=== PATIENT | female | born 1955 | race Caucasian/White ===

== ENCOUNTER 2019-10-02 07:39 | Outpatient (RCR) | payer MEDICARE, SELFPAY ==
--- NOTE | 2019-07-10 17:54 | WPDWOUNDNOTE ---
Wound Care Note Date/Time: 07/10/19 17:54 History: Patient is status post incarcerated ventral hernia repair with bilateral component separation and retro rectus mesh placement. She was originally healing well postoperatively, but 2-3 weeks postop she developed a large subcutaneous abscess and necrotizing soft tissue infection. She required multiple debridements and eventual wound VAC placement. She has been continuing care with wound VAC changes 3 times weekly at [facility]. She comes to the wound Care Center for Wound assessments and further recommendations. Wound history: 3 times weekly wound VAC changes since patient was discharged from hospital. Wound approximation: No Wound width: 27 Wound length: 10 Wound depth: 1 Drainage: Serosanguineous Surrounding tissue appearance: Macerated skin where black foam was sitting directly on. Tunnelin-8 o'clock 2-3 cm Percentage granulation tissue: 100% Treatment/Procedures: Sharp debridement of minimal necrotic tissue performed by wound ostomy care nurse Dressings: Saline wet to dry dressing applied until patient can return to [facility] and have wound VAC reapplied. Assessment and Plan Assessment and plan (1) Open wound of abdominal wall w/o penetration into peritoneal cavity: Code(s): S31.109A - Unspecified open wound of abdominal wall, unspecified quadrant without penetration into peritoneal cavity, initial encounter Status: Acute Assessment and Plan: Continue wound VAC changes at [facility]. Patient's nurse at [facility] was educated about avoiding sponge placement directly on patient's skin. I understand this is a difficult process due to patient's body habitus and position of wound directly within a skin crease. Will reassess patient in 1 week, and if skin maceration is persisting, may switch over to daily dressing changes instead of wound VAC. (2) Necrotizing soft tissue infection: Code(s): M79.89 - Other specified soft tissue disorders Status: Acute
--- NOTE | 2019-08-24 10:09 | PCWOUND ---
wocn note [facility] did not have patient down for appointment, cancelled for today. let Dr Office know, waiting for reschedule date and time.
--- NOTE | 2019-09-04 17:19 | WPDWOUNDNOTE ---
Wound Care Note Date/Time: 09/04/19 17:19 History: Patient continues to slowly improve. No complaints today. Still resides at [place] and is having daily dressing changes with silver gel and Mepilex border Wound approximation: No Wound width: 0.7 Wound length: 3 Percentage granulation tissue: 100 Assessment and Plan Assessment and plan (1) Open wound of abdominal wall w/o penetration into peritoneal cavity: Code(s): S31.109A - Unspecified open wound of abdominal wall, unspecified quadrant without penetration into peritoneal cavity, initial encounter Status: Acute Assessment and Plan: Continue Silver gel and Mepilex border dressing changes. Will follow up with patient in 1 month. (2) Necrotizing soft tissue infection: Code(s): M79.89 - Other specified soft tissue disorders Status: Acute
--- NOTE | 2019-10-02 16:59 | WPDWOUNDNOTE ---
Wound Care Note Date/Time: 10/02/19 16:59 History: Patient is status post incarcerated ventral hernia repair with bilateral component separation and retro rectus mesh placement. She was originally healing well postoperatively, but 2-3 weeks postop she developed a large subcutaneous abscess and necrotizing soft tissue infection. She required multiple debridements and eventual wound VAC placement. She is currently residing at [facility]. She comes to the wound Care Center for Wound assessments and further recommendations. Wound history: Wound has nearly closed completely. One small wound opening remains. Wound approximation: No Wound width: 0.7cm Wound length: 3.5cm Wound depth: 0.2cm Drainage: serous Surrounding tissue appearance: healthy Tunneling: no Percentage granulation tissue: 100 Assessment and Plan Assessment and plan (1) Open wound of abdominal wall w/o penetration into peritoneal cavity: Qualifiers: Encounter type: subsequent encounter Qualified Code(s): S31.109D - Unspecified open wound of abdominal wall, unspecified quadrant without penetration into peritoneal cavity, subsequent encounter Code(s): S31.109A - Unspecified open wound of abdominal wall, unspecified quadrant without penetration into peritoneal cavity, initial encounter Status: Acute Assessment and Plan: Patient continues to slowly heal, and she has no signs of further abdominal infection. Will continue Mepilex border dressing changes daily. This routine daily wound care can be handled safely at the group home facility. She may follow up in the wound clinic or in my office as needed for any other concerns. (2) Necrotizing soft tissue infection: Code(s): M79.89 - Other specified soft tissue disorders Status: Acute
== END 2019-10-08 23:59 | disposition home or self-care (01) ==
LOC: ANHWOC 07:39
PROVIDERS: PCP Family Medicine Adolescent Medicine; Visit Provider Surgery
DX: Z48.01 Encounter for change or removal of surgical wound dressing (principal)
CPT/HCPCS: 92593; 99212; 99213; A9270; G0463

== ENCOUNTER 2020-09-25 11:43 | Inpatient (IN) | payer MEDICARE, MEDICAID, SELFPAY ==
[2020-09-25] VITALS (42 sets, daily range): BP systolic 146–182; BP diastolic 84–111; PULSE 76–96; RESP 16–26; TEMP 36.2–36.3; O2SAT 90–97
--- NOTE | ~2020-09-25 | XR_ITS ---
EXAMINATION: XR chest 1V portable EXAM DATE: 09/25/2020 13:23 INDICATION: Altered mental status, shortness of breath and weakness. TECHNIQUE: Portable AP frontal chest x-ray was obtained. Comparison is made to prior examination from 05/20/2019. FINDINGS: Low lung volume. No confluent consolidation, pneumothorax or pleural effusion suspected. Th e cardiac silhouette is enlarged. There are bony degenerative changes. IMPRESSION: 1. No acute cardiopulmonary findings. Reviewed, dictated and finalized at location A. GER OF CORPORATE COMMUNICATIONS
--- NOTE | ~2020-09-25 | XR_ITS ---
XR abdomen NG/feed tube insert DATE: 10/01/2020 05:41 INDICATION: NG tube placement TECHNIQUE: Portable AP view on October 01, 2020 at 0451 hours COMPARISON: October 01, 2020 KUB at 0339 hours FINDINGS: An NG tube overlies the esophagus and stomach, the distal tip overlying the lateral aspect of the right upper quadrant, likely either in the distal stomach or proximal small bowel. IMPRESSION: NG tube likely in distal stomach or proximal duodenum Reviewed, dictated and finalized at Location A. Reviewed, dictated and finalized at location A. NSE AND PERMIT SPECIALIST
--- NOTE | ~2020-09-25 | XR_ITS ---
XR chest 1V portable DATE: 10/01/2020 03:58 INDICATION: Oxygen desaturation TECHNIQUE: Portable AP chest on October 01, 2020 at 0337 hours COMPARISON: 09/25/2020 portable AP chest FINDINGS: Mild infiltrate or atelectasis at the lung bases. The right apex is not optimally evaluated due to superimposed chin. Borderline heart size. Aortic unfolding. Severe osteoarthritic change at the left glenohumeral joint. Diffuse osteopenia. Degenerative change of the thoracic spine. 4.5 cm rounded hyperdensity of uncertain significance, possibly a superimposed artifact, overlies the right upper abdomen. There is gaseous distention of the stomach. IMPRESSION: Mild infiltrate or atelectasis at the lung bases Reviewed, dictated and finalized at location A. NESE INTERPRETER
--- NOTE | ~2020-09-25 | CT_ITS ---
EXAMINATION: CT brain wo con DATE: 09/25/2020 22:58 INDICATION: Altered mental state. Left cheek swelling, possible trauma. TECHNIQUE: Computed tomography (CT) of the head was performed without intravenous contrast. The mA wa s adjusted according to patient size. Iterative reconstruction technique was employed. Exam dose: 68 1.00 mGy-cm total exam DLP. COMPARISON: 05/25/2019 CT brain FINDINGS: There is greater than expected central and cortical cerebral atrophy and cerebellar atrophy for chronological age. There is nonspecific diminished attenuation of the cerebral white matter, likely due to chronic small vessel ischemic changes. Bilateral carotid siphon and supraclinoid internal carotid artery calcifications, bilateral vertebral artery calcification. No intracranial mass lesion or hemorrhage or recent cerebrovascular accident is evident. No midline s hift or mass effect. Bilateral orbital globe prostheses. Prominent soft tissue thickening of the right maxillary sinus. Patchy opacification of some right eth moid air cells. The mastoid air cells are normally developed and aerated. Bilateral hyperostosis frontalis interna, not likely of clinical significance. No fracture or bone de struction of the cranial vault. IMPRESSION: Cerebral and cerebellar atrophy for age Single atherosclerosis and chronic small vessel ischemic changes of cerebral white matter No acute cranial finding or skull fracture Reviewed, dictated and finalized at Location A. Reviewed, dictated and finalized at location A. IC ASSISTANT IMPRESSION: Cerebral and cerebellar atrophy for age Single atherosclerosis and chronic small vessel ischemic changes of cerebral wh ite matter No acute cranial finding or skull fracture
--- NOTE | ~2020-09-25 | CT_ITS ---
EXAMINATION: CT facial & cervical spine wo DATE: 09/25/2020 22:58 INDICATION: Altered mental status. Left cheek swelling. TECHNIQUE: Computed tomography (CT) of the facial bones and maxillofacial region and cervical spine w as performed without intravenous contrast. Automated exposure control and iterative reconstruction te chnique were employed. Exam dose: 509.37 mGy-cm total exam DLP. COMPARISON: None. FINDINGS: No facial fracture or bone destruction is evident. The nasal bone, zygomatic arches, fronto zygomatic sutures are intact. There is severe mucoperiosteal thickening of the right maxillary sinus and patchy opacification of so me right ethmoid air cells. The mastoid air cells are normally developed and aerated. C1 and C2 are normally aligned and the odontoid process is intact. No fracture or dislocation or locked facet or prevertebral soft tissue swelling is evident. Moderate degenerative disc disease at C3-4, C4-5. There is severe degenerative disc disease at C5-6 and C6-7. There is degenerative change at the apophyseal and uncovertebral joints. IMPRESSION: No facial or cervical spine fracture Extensive degenerative changes of the cervical spine Right maxillary sinus and right ethmoid sinus partial opacification Reviewed, dictated and finalized at Location A. Reviewed, dictated and finalized at location A. OMS COMPLIANCE SPECIALIST
--- NOTE | ~2020-09-25 | XR_ITS ---
EXAMINATION: XR abdomen obstructive series DATE: 09/27/2020 10:17 INDICATION: Vomiting. TECHNIQUE: Upright and supine views of the abdomen on 3 radiographs were obtained. COMPARISON: Abdomen single view 05/08/2019, CT abdomen and pelvis 05/19/2019 FINDINGS: There is gaseous distention of the stomach. There are no dilated loops of large or small linsey wel. There is a moderate volume of stool in the colon. No free intraperitoneal gas. IMPRESSION: 1. Gaseous distention of the stomach. Reviewed, dictated and finalized at location A. E D TECH
--- NOTE | ~2020-09-25 | XR_ITS ---
EXAMINATION: XR abdomen/kub 1V DATE: 09/29/2020 06:16 INDICATION: Bowel obstruction TECHNIQUE: A supine view of the abdomen on 2 radiographs was obtained. COMPARISON: CT dated 09/28/2020 FINDINGS: There are few dilated gas-filled loops of bowel in the central abdomen consistent with persistent sma ll bowel obstruction. Moderate amount of stool in the proximal colon was small to moderate amount of gas in the more distal colon. 6 nonrib-bearing lumbar segments. L2 compression fracture. IMPRESSION: 1. Persistent small bowel obstruction. Reviewed, dictated and finalized at location A. TER TOPOGRAPHICAL
--- NOTE | ~2020-09-25 | XR_ITS ---
XR abdomen/kub 1V DATE: 10/01/2020 03:58 INDICATION: Small bowel obstruction TECHNIQUE: 3 views of the abdomen on October 01, 2020 at 0 339 through 0341 hours COMPARISON: September 30, 2020 small bowel follow-through FINDINGS: There is still a prominent amount of radiopaque contrast material within the distended stom ach and dilated loops of small bowel, without reaching the colon, consistent with persistent small linsey wel obstruction. IMPRESSION: Small bowel obstruction Reviewed, dictated and finalized at Location A. Reviewed, dictated and finalized at location A. CH PATHOLOGIST ASSISTANT IMPRESSION: Small bowel obstruction
--- NOTE | ~2020-09-25 | XR_ITS ---
EXAMINATION: XR sm bowel follow through DATE: 09/30/2020 13:40 INDICATION: Small bowel obstruction. TECHNIQUE: Oral contrast was administered, and a time course of radiographs of the abdomen was obtain ed. Fluoroscopy of the small bowel was not performed. Fluoroscopy exposure time was 0 minutes. The to rayne number of images was 11. COMPARISON: CT abdomen and pelvis 09/28/2020 FINDINGS: There are multiple dilated loops of small bowel. The stomach is distended. At 4 hours, contrast remai zak in proximal small bowel. The colon is decompressed. IMPRESSION: 1. Small bowel obstruction. Reviewed, dictated and finalized at location A. INTERN IMPRESSION: 1. Small bowel obstruction.
--- NOTE | ~2020-09-25 | XR_ITS ---
EXAMINATION: XR abdomen NG/feed tube insert DATE: 09/27/2020 12:23 INDICATION: Ileus. Nasogastric tube placement. TECHNIQUE: A supine view of the abdomen and lower chest was obtained for evaluation of feeding tube placement. COMPARISON: 09/27/2020 FINDINGS: Is a gastric tube with proximal side-port in the body of the stomach and distal tip collimated below the inferior margin of the [id number]. Decrease in the degree of gastric distention. Large amount of stool at the hepatic and splenic flexures of the colon. No dilated loops of bowel in the visualize d abdomen. Linear discoid atelectasis/scarring in the lateral left lower lung zone. Cardiomegaly. IMPRESSION: 1. Nasogastric tube in the stomach. Reviewed, dictated and finalized at location B. WORKER
--- NOTE | ~2020-09-25 | CT_ITS ---
EXAMINATION: CT abdomen pelvis wo con DATE: 09/28/2020 09:53 INDICATION: Nausea TECHNIQUE: Computed tomography (CT) of the abdomen and pelvis was performed without intravenous contr ast. Automated exposure control and iterative reconstruction technique were employed. Exam dose: 109 6.03 mGy-cm total exam DLP. COMPARISON: 05/19/2019 CT abdomen pelvis 05/01/2019 CTA chest abdomen pelvis FINDINGS: Prominent discoid atelectasis or scarring is again noted in the right lower lobe intra-leana cular extent left lower lobe and lingula. Cardiomegaly. Coronary artery calcification. Mitral annulus calcification. No pericardial or pleural effusion. The liver, gallbladder, spleen, pancreas, adrenal glands are unremarkable. No bile duct or pancreatic duct dilatation. Upper pole right renal mass lesion is demonstrated to better advantage on the IV contrast examination of 05/01/2019. No urinary tract calculus or hydroureteronephrosis. The urinary bladder appears unremarkable. Status post hysterectomy. Normal caliber of the abdominal aorta. No intraperitoneal or retroperitoneal or pelvic mass lesion or adenopathy or ascites. There are fluid containing dilated small bowel segments measuring up to 3.8 cm diameter, with multipl e air-fluid levels. There is a transition zone in the mid pelvic area with decompression of the dista l small bowel. Normal appendix. There is a prominent amount of fecal material within the colon. No colonic obstructi on. No intraperitoneal free air. Bilateral fat-containing inguinal hernias. Subacute or old healed anterior right fifth, sixth and seventh rib fractures. Burst fracture deformity of L1, present on 05/01/201919. Grade 1 anterolisthesis at L4-5 due to degenerative change at the apophyseal joints. Degenerative changes of the thoracic and lumbar spine IMPRESSION: Small bowel obstruction with transition zone in the mid pelvic area Upper pole right renal mass lesion is demonstrated to better advantage on prior 05/01/2019 CT examinati on with IV contrast material. Reviewed, dictated and finalized at [facility] Reviewed, dictated and finalized at [facility] [employer] IMPRESSION: Small bowel obstruction with transition zone in the mid pelvic are a Upper pole right renal mass lesion is demonstrated to better advantage on prior 05/01/2019 CT examination with IV contrast material.
[2020-09-25 12:05] LABS: Glucose Point of Care 165 (65-105)
--- NOTE | 2020-09-25 13:00 | ED.AMS ---
HPI - Altered Mental Status General Chief Complaint: Altered Mental Status Stated Complaint: htn Time Seen by Provider: 09/25/20 12:13 History of Present Illness HPI narrative: Patient is a 65-year-old female who presents ER with a change in mental status. Apparently the half-way patient is more somnolent not eating. No history of trauma. No history of fevers or sweats per EMS. Unfortunately history is very limited due to patient's mental status. Related Data Home Medications Medication Instructions Recorded Confirmed Miralax 17 g PO DAILY 09/25/20 09/25/20 Protonix 40 mg PO DAILY 09/25/20 09/25/20 acetaminophen 650 mg PO Q4H PRN 09/25/20 09/25/20 duloxetine 60 mg PO DAILY 09/25/20 09/25/20 glucagon (human recombinant) 1 mg IM PRN PRN 09/25/20 09/25/20 [GlucaGen HypoKit] indapamide 2.5 mg PO BID 09/25/20 09/25/20 lorazepam 1 mg PO DAILY PRN 09/25/20 09/25/20 losartan 100 mg PO DAILY 09/25/20 09/25/20 meclizine 25 mg PO QID PRN 09/25/20 09/25/20 metformin 1,000 mg PO DAILY 09/25/20 09/25/20 metformin 500 mg PO HS 09/25/20 09/25/20 nystatin [Nystop] 100,000 unit TOPICAL PRN PRN 09/25/20 09/25/20 potassium chloride 10 meq PO DAILY 09/25/20 09/25/20 propranolol 80 mg PO BID 09/25/20 09/25/20 quetiapine 50 mg PO HS 09/25/20 09/25/20 Allergies Allergy/AdvReac Type Severity Reaction Status Date / Time codeine Allergy Unknown Verified 09/25/20 13:14 Iodinated Contrast Media Allergy Unknown Verified 09/25/20 13:15 procaine Allergy Unknown Verified 09/25/20 13:15 shellfish derived Allergy Unknown Verified 09/25/20 13:15 adhesive tape AdvReac Unknown Verified 09/25/20 13:15 Review of Systems Review of Systems: ROS unobtainable: Yes unobtainable due to mental status PMFSH Past Medical History Medical History (Updated 09/25/20 @ 23:38 by John Kruse MD) Anxiety Benign colon polyp Chronic anemia Dysphagia Essential hypertension Gastroesophageal reflux disease Irritable bowel syndrome Major depressive disorder Migraine 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 Type 2 diabetes mellitus Uterine cancer (~1998) Status post total hysterectomy. Surgical History Surgical History (Updated 09/25/20 @ 23:14 by Jes Truong PA-C) History of bilateral carpal tunnel release History of bilateral enucleation of eyeball As a child, for treatment of retinoblastoma. History of hysterectomy (~1998) As treatment for uterine cancer. History of ventral hernia repair (~03/2019) Incarcerated ventral hernia repair complicated by abdominal wall abscess and necrotizing soft tissue infection requiring multiple debridements and wound VAC. Family History Family History (Updated 09/25/20 @ 23:16 by Jes Truong PA-C) Mother Diabetes mellitus Father Acute myocardial infarction Sibling Acute myocardial infarction Social History Social History (Updated 09/25/20 @ 23:17 by Jes Truong PA-C) Social History: She is a resident at [facility]. Lifelong nonsmoker. No alcohol or illicit substance use. Her brother, Vinay morales, is her healthcare power of divorce attorney. She is listed as a do not resuscitate. Spiritual care concerns: No Exam Narrative: Exam Narrative: GENERAL: Chronically ill-appearing, obese, and in no acute distress. HEAD: Normocephalic, atraumatic. CHEST: Clear to auscultation. No respiratory distress. HEART: Regular rate and rhythm. Normal peripheral pulses. ABDOMEN: Soft, nontender, nondistended. EXTREMITIES: Normal range of motion. 1+ edema. SKIN: Warm, dry, no rash. NEURO: Alert and oriented x1. PSYCH: Normal mood and affect. Course Course Emergency Course: Admit to hospitalist service. Patient with urinary tract infection and dehydration. Patient given ceftriaxone and IV fluid. Vital Signs Vital signs: Vital Signs Temperature 97.4 F L 09/25
[2020-09-25 13:12] LABS: Base Excess ABG 4.2 mEq/l (+/-2.0); Fractional Inspired Oxygen 21 %; HCO3 ABG 28.4 mEq/l (22.0-26.0); Oxygen Content ABG 21.5 %vol (16.0-22.0); Oxygen Saturation ABG 92.7 % (95.0-100.0); Oxyhemoglobin 90.9 % THb (90.0-100.0); PCO2 ABG 41.2 mmHg (35.0-45.0); PO2 ABG 61.4 mmHg (80.0-100.0); PO2 FiO2 Ratio Arterial Blood 2.92 %; Total Hemoglobin 16.9 g/dL (12.0-18.0); pH ABG 7.457 (7.350-7.450)
[2020-09-25 13:13] LABS: Device ROOM AIR; Modified Allen's Test Pass; Site Drawn LEFT RADIAL
[2020-09-25 13:28] LABS: Basophils Percent Auto 0.3 % (0.2-1.2); Eosinophils Percent Auto 0.1 % (0-4.4); Hematocrit 47.3 % (37.0-47.0); Hemoglobin 16.4 g/dL (12.0-15.0); Immature Granulocyte Absolute 0.06 K/mm3 (0.00-0.031); Immature Granulocyte Percent A 0.4 % (0-0.5); Lymphocytes Absolute Auto 1.54 K/mm3 (0.9-3.2); Lymphocytes Percent Auto 10.8 % (18.3-44.2); Mean Corpuscular HGB Conc 34.7 g/dl (32-36); Mean Corpuscular Hemoglobin 29.3 pg (26-34); Mean Corpuscular Volume 84.6 fl (80-100); Mean Platelet Volume 8.5 fl (7.4-10.4); Monocytes Absolute Auto 1.1 K/mm3 (0.1-0.6); Monocytes Percent Auto 7.4 % (2.6-8.5); Neutrophils Absolute Auto 11.5 K/mm3 (1.3-6.7); Platelet Count Result 273 k/mm3 (150-375); Red Blood Count 5.59 M/mm3 (4.2-5.4); Red Cell Distribution Width 14.1 % (11.5-14.5); White Blood Count 14.2 K/mm3 (4.5-10.0)
--- NOTE | 2020-09-25 13:38 | PC.NURSE ---
Patient's O2 saturation 88% on RA. Patient requiring repeated stimulation to wake up and speak. Patient placed on 2L NC, O2 saturation now 96%.
[2020-09-25 13:45] LABS: Anion Gap 9 mmol/L (8-16); Blood Urea Nitrogen 31 mg/dL (7-17); Calcium 9.4 mg/dL (8.4-10.2); Carbon Dioxide 31 mmol/L (22-30); Chloride 95 mmol/L (98-107); Estimated CRCL calculation 45 ml/min; Estimated Glomerular Filt Rate 56; Glucose 162 mg/dL (65-105); Potassium 3.3 mmol/L (3.4-5.0); Sodium 135 mmol/L (137-145)
[2020-09-25] MEDS: SODIUM CHLORIDE 0.9% IV 1,000 ML 999 ML IV CONT (14:23)
[2020-09-25 14:49] LABS: Add Urine Microscopic? YES; Appearance Urine Cloudy (Clear); Bacteria Urine 4+ /hpf; Bilirubin Urine 1+ (Negative); Blood Urine 1+ (Negative); Color Urine Amber (Yellow); Glucose Urine UA Negative (Negative); Ketones Urine Trace mg/dL (Negative); Leukocyte Esterase Ur 2+ LEU/UL (Negative); Mucus Urine Heavy /lpf; Nitrate Urine Negative (Negative); Protein Urine 2+ mg/dL (Negative); Squamous Epithelial Cell Urine Rare /hpf (Few); WBC Clumps Urine Present /HPF; WBC Urine 51-75 /hpf
[2020-09-25] MEDS: SODIUM CHLORIDE 0.9% IV 1,000 ML 125 ML IV CONT (16:50)
--- NOTE | 2020-09-25 17:06 | PC.NURSE ---
Report given to RN taking over patient's care.
--- NOTE | 2020-09-25 18:32 | PC.NURSE ---
This patient, Elidia Patel, was admitted to Medical Room 244-. Patient/family oriented to hospital policies and general routines including ID bracelet, bed and alarms, visiting hours, pain management, procedures, bathroom and other care routines, personal items, smoking policy, room service/diet, and visiting hours. Information on how to activate the Rapid Response Team has been discussed. Patient/Family are encouraged to report perceived risks to care and to ask questions if they do not understand what they are told or what they should do.
--- NOTE | 2020-09-25 20:00 | PM.IMHP ---
H&P: HPI History of Present Illness Date/Time: 09/25/20 20:00 Chief Complaint: Altered mental status. Narrative: This is a 65-year-old female with type 2 diabetes mellitus, hypertension, GERD, chronic anemia, and history of bilateral retinoblastoma status post enucleation who presented to the emergency department earlier this afternoon via EMS from [facility] for evaluation of altered mental status. She cannot provide me with any significant history given her current clinical condition, as she only said a couple of words the entire time I was in the room. According to the triage note, staff at the correction were unable to get her to eat breakfast today and she was lethargic and not really responding. On arrival to the emergency department she was found to meet sepsis criteria with evidence of urinary tract infection as well as dehydration and she was admitted in this setting. At the time my evaluation she acts much different than when I have seen her in the past, not really responding to questions although she does follow some commands. She seems restless and moves around in bed, and frequently throws off her covers. She has swelling with evidence of an abrasion on her left cheek but she cannot tell me if that is new or if it was from a trauma. There was no mention fall or injury in the paperwork that accompanied her. Also no mention of fever. She does indicate by nodding her head that she has been nauseated and in fact she vomited not long prior to me entering the room. When asked if she was in pain she stated yes however did not elaborate, and this was the extent of her communication. Review of Systems Review of Systems: Narrative: Unable to be assessed given her current clinical condition as detailed above. 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 Type 2 diabetes mellitus Uterine cancer (~1998) Status post total hysterectomy. Surgical History Surgical History (Updated 09/25/20 @ 23:14 by Jes Truong PA-C) History of bilateral carpal tunnel release History of bilateral enucleation of eyeball As a child, for treatment of retinoblastoma. History of hysterectomy (~1998) As treatment for uterine cancer. History of ventral hernia repair (~03/2019) Incarcerated ventral hernia repair complicated by abdominal wall abscess and necrotizing soft tissue infection requiring multiple debridements and wound VAC. Family History Family History (Updated 09/25/20 @ 23:16 by Jes Truong PA-C) Mother Diabetes mellitus Father Acute myocardial infarction Sibling Acute myocardial infarction Social History Social History (Updated 09/25/20 @ 23:17 by Jes Truong PA-C) Social History: She is a resident at [facility]. Lifelong nonsmoker. No alcohol or illicit substance use. Her brother, Vinay morales, is her healthcare power of composite engineer. She is listed as a do not resuscitate. Spiritual care concerns: No Meds Home Medications and Allergies Home Medications Medication Instructions Recorded Confirmed Type Miralax 17 g PO DAILY 09/25/20 09/25/20 History Protonix 40 mg PO DAILY 09/25/20 09/25/20 History acetaminophen 650 mg PO Q4H PRN 09/25/20 09/25/20 History duloxetine 60 mg PO DAILY 09/25/20 09/25/20 History glucagon (human recombinant) 1 mg IM PRN PRN 09/25/20 09/25/20 History [GlucaGen HypoKit] indapamide 2.5 mg PO BID 09/25/20 09/25/20 History lorazepam 1 mg PO DAILY PRN 09/25/20 09/25/20 History losartan 100 mg PO DAILY 09/25/20 09/25/20 History meclizine 25 mg PO QID PRN 09/25/20 09/25/20 History metformin
[2020-09-25] MEDS: ONDANSETRON INJ 4 MG/2 ML VIAL IV PUSH (21:40)
[2020-09-25 21:48] LABS: Lactic Acid Reflex 1.5 mmol/L (0.7-2.1)
[2020-09-25 21:49] LABS: Alanine Aminotransferase 13 U/L (4-35); Albumin Level 3.7 g/dL (3.5-5.1); Alkaline Phosphatase 110 U/L (38-126); Anion Gap 8 mmol/L (8-16); Aspartate Amino Transferase 24 U/L (14-36); Bilirubin,Total 0.7 mg/dL (0.2-1.3); Blood Urea Nitrogen 34 mg/dL (7-17); Carbon Dioxide 30 mmol/L (22-30); Chloride 98 mmol/L (98-107); Estimated CRCL calculation 45 ml/min; Estimated Glomerular Filt Rate 56; Glucose 168 mg/dL (65-105); Magnesium 1.5 mg/dL (1.6-2.3); Potassium 3.3 mmol/L (3.4-5.0); Sodium 136 mmol/L (137-145)
[2020-09-25 22:01] LABS: Glucose Point of Care 183 (65-105)
[2020-09-25] MEDS: MAGNESIUM SULF 2 GM/WATER 50ML 2 GM/50 ML BAG IVPB (22:36)
[2020-09-26] VITALS (8 sets, daily range): BP systolic 144–202; BP diastolic 78–98; PULSE 68–82; RESP 16–19; TEMP 36–36.6; O2SAT 94–96
[2020-09-26] MEDS: METOPROLOL TARTRATE INJ 5 MG/5 ML VIAL IV PUSH ×2 (00:26→05:57)
[2020-09-26] MEDS: KCL 20 MEQ/SW 100 ML 100 ML 50 MEQ IVPB (00:27)
[2020-09-26] MEDS: SODIUM CHLORIDE 0.9% IV 1,000 ML 125 ML IV CONT (03:15)
[2020-09-26 05:47] LABS: Hematocrit 40.2 % (37.0-47.0); Hemoglobin 13.7 g/dL (12.0-15.0); Mean Corpuscular HGB Conc 34.1 g/dl (32-36); Mean Platelet Volume 8.9 fl (7.4-10.4); Platelet Count Result 223 k/mm3 (150-375); Red Blood Count 4.73 M/mm3 (4.2-5.4); Red Cell Distribution Width 14.1 % (11.5-14.5); White Blood Count 16.2 K/mm3 (4.5-10.0)
[2020-09-26 05:48] LABS: Alanine Aminotransferase 12 U/L (4-35); Albumin Level 3.5 g/dL (3.5-5.1); Alkaline Phosphatase 102 U/L (38-126); Anion Gap 6 mmol/L (8-16); Aspartate Amino Transferase 24 U/L (14-36); Bilirubin,Total 0.8 mg/dL (0.2-1.3); Blood Urea Nitrogen 35 mg/dL (7-17); Calcium 8.6 mg/dL (8.4-10.2); Carbon Dioxide 34 mmol/L (22-30); Chloride 98 mmol/L (98-107); Estimated CRCL calculation 45 ml/min; Estimated Glomerular Filt Rate 56; Glucose 154 mg/dL (65-105); Magnesium 2.1 mg/dL (1.6-2.3); Potassium 3.2 mmol/L (3.4-5.0); Sodium 138 mmol/L (137-145)
[2020-09-26 07:37] LABS: Glucose Point of Care 170 (65-105)
[2020-09-26] MEDS: POTASSIUM CHLORIDE 20 MEQ PACKET (FOR LIQUID) PO (08:41)
[2020-09-26] MEDS: INDAPAMIDE 2.5 MG TABLET PO ×2 (08:41→17:08)
[2020-09-26] MEDS: ENOXAPARIN 40 MG/0.4 ML SYRINGE SUB-Q (08:42)
[2020-09-26] MEDS: DULoxetine HCL 60 MG CAPSULE.DR PO (08:42)
[2020-09-26] MEDS: PANTOPRAZOLE 40 MG TABLET PO (08:43)
[2020-09-26] MEDS: PROPRANOLOL HCL 40 MG TABLET 80 MG PO ×2 (08:43→17:08)
[2020-09-26] MEDS: LOSARTAN POTASSIUM 100 MG TABLET PO (08:43)
--- NOTE | 2020-09-26 09:03 | PM.IMPN ---
Progress Note: A&P Assessment and Plan (1) Metabolic encephalopathy: Code(s): G93.41 - Metabolic encephalopathy Status: Acute Assessment and Plan: The patient presented to the emergency department with altered mental status, felt to be metabolic encephalopathy from underlying infection and dehydration. She appears maybe slightly improved since admission. Will continue with IV fluids and treatment for UTI as described below I have instructed RN to keep her NPO except with sips with meds until her mental status improves; then advance her diet as tolerated If no improvement, will consider ST eval (2) Urinary tract infection: Code(s): N39.0 - Urinary tract infection, site not specified Status: Acute Assessment and Plan: UA suspicious for UTI; UCx and BCx pending. Patient technically met SIRS criteria with leukocytosis and tachypnea; RR has improved, leukocytosis stable. Lactic acid WNL. Patient placed on IV Rocephin from the ED Continue IV Rocephin for now; tailor antibiotics to culture Continue IV fluids for rehydration Monitor leukocytosis and clinical status (3) Dehydration: Code(s): E86.0 - Dehydration Status: Acute Assessment and Plan: Still appears significantly dry on exam. Continue IV fluid hydration until tolerating PO (4) Type 2 diabetes mellitus: Code(s): E11.9 - Type 2 diabetes mellitus without complications Status: Inactive Assessment and Plan: A1c 5.0 Accuchecks ACHS, hypoglycemia protocol, correctional insulin, diabetic diet once tolerating diet (5) Hypokalemia: Code(s): E87.6 - Hypokalemia Status: Acute Assessment and Plan: K+ 3.2 today; replaced Monitor daily Replace as needed (6) Hypomagnesemia: Code(s): E83.42 - Hypomagnesemia Status: Acute Assessment and Plan: Mag 2.1 Monitor daily Replace as needed (7) Essential hypertension: Code(s): I10 - Essential (primary) hypertension Status: Inactive Assessment and Plan: BP elevated at 140s sys; but patient has not had most HTN meds yet Will resume home antihypertensive meds PRN hydralazine IV with parameters Monitor (8) Gastroesophageal reflux disease: Code(s): K21.9 - Gastro-esophageal reflux disease without esophagitis Status: Inactive Assessment and Plan: Continue home meds (9) Major depressive disorder: Code(s): F32.9 - Major depressive disorder, single episode, unspecified Status: Inactive Assessment and Plan: Continue home meds Subjective Date/time seen: 09/26/20 09:03 Interval history: Patient is a 65-year-old female with type 2 diabetes mellitus, hypertension, GERD, chronic anemia, and history of bilateral retinoblastoma status post enucleation who is seen in follow up for acute metabolic encephalopathy felt to be due to suspected UTI and meeting SIRS criteria with leukocytosis and tachypnea. Patient is awake, but lethargic. Nursing in room attempting to feed meds; she swallows some medications, but takes a lot of convincing to take more medications or answer questions. She tells me her name, but answers very little other history questions. She endorses chest pain, but cannot provide any descriptors and I am not quit sure if she is truly having any symptoms at the moment. No other history can be obtained at the time due to mental status. Review of Systems Review of Systems: ROS unobtainable: Yes unobtainable due to mental status Exam Narrative: Exam Narrative: General: Patient sitting upright in bed in no acute distress. Nursing
[2020-09-26 11:40] LABS: Glucose Point of Care 140 (65-105)
[2020-09-26 16:37] LABS: Glucose Point of Care 147 (65-105)
[2020-09-26] MEDS: SODIUM CHLORIDE 0.9% IV 1,000 ML 75 ML IV CONT (20:29)
[2020-09-26 20:32] LABS: Glucose Point of Care 131 (65-105)
[2020-09-26] MEDS: hydrALAZINE HCL 20 MG/ML VIAL 5 MG IV PUSH (20:37)
--- NOTE | 2020-09-26 20:40 | PC.NURSE ---
b/p / manual Hydralazine ivp given.
[2020-09-27 05:14] VITALS: BP 148/96; PULSE 67; RESP 16; TEMP 36.8; O2SAT 94
[2020-09-27 05:20] LABS: Basophils Percent Auto 0.4 % (0.2-1.2); Eosinophils Absolute Auto 0.1 K/mm3 (0-0.3); Eosinophils Percent Auto 1.4 % (0-4.4); Hematocrit 40.2 % (37.0-47.0); Hemoglobin 13.3 g/dL (12.0-15.0); Immature Granulocyte Absolute 0.04 K/mm3 (0.00-0.031); Immature Granulocyte Percent A 0.4 % (0-0.5); Lymphocytes Absolute Auto 1.35 K/mm3 (0.9-3.2); Lymphocytes Percent Auto 14.3 % (18.3-44.2); Mean Corpuscular HGB Conc 33.1 g/dl (32-36); Mean Corpuscular Hemoglobin 29.6 pg (26-34); Mean Corpuscular Volume 89.3 fl (80-100); Monocytes Absolute Auto 0.9 K/mm3 (0.1-0.6); Monocytes Percent Auto 9.9 % (2.6-8.5); Neutrophils Absolute Auto 6.9 K/mm3 (1.3-6.7); Neutrophils Percent Auto 73.6 % (45.5-73.1); Platelet Count Result 189 k/mm3 (150-375); Red Cell Distribution Width 14.1 % (11.5-14.5); White Blood Count 9.4 K/mm3 (4.5-10.0)
[2020-09-27 05:34] LABS: Anion Gap 7 mmol/L (8-16); Blood Urea Nitrogen 30 mg/dL (7-17); Calcium 8.7 mg/dL (8.4-10.2); Carbon Dioxide 30 mmol/L (22-30); Chloride 100 mmol/L (98-107); Estimated CRCL calculation 56 ml/min; Estimated Glomerular Filt Rate > 60; Glucose 128 mg/dL (65-105); Magnesium 1.7 mg/dL (1.6-2.3); Sodium 137 mmol/L (137-145)
--- NOTE | 2020-09-27 06:04 | PC.NURSE ---
Pt remains somewhat somulant [facility]
[2020-09-27 07:43] LABS: Glucose Point of Care 119 (65-105)
--- NOTE | 2020-09-27 09:51 | PM.IMPN ---
Progress Note: A&P Assessment and Plan (1) Metabolic encephalopathy: Code(s): G93.41 - Metabolic encephalopathy Status: Acute Assessment and Plan: The patient presented to the emergency department with altered mental status, felt to be metabolic encephalopathy from underlying infection and dehydration. She appears maybe slightly improved since admission, but nursing now reports she vomited again this morning; she is at risk for aspiration given this Will continue with IV fluids and treatment for UTI as described below I have instructed RN to keep her NPO except with sips with meds Will do ST bedside eval and treat; will await recommendations Will do abd series/KUB today for further eval of vomiting (2) Urinary tract infection: Code(s): N39.0 - Urinary tract infection, site not specified Status: Acute Assessment and Plan: UA suspicious for UTI; UCx growing E. coli sensitive to Rocephin and BCx NGTD x 2 after 2 days. Patient technically met SIRS criteria with leukocytosis and tachypnea; RR has improved, leukocytosis stable. Lactic acid WNL. Patient placed on IV Rocephin from the ED Continue IV Rocephin for now; switch to PO cefdinir once mental status improves Continue IV fluids for rehydration Monitor leukocytosis and clinical status (3) Dehydration: Code(s): E86.0 - Dehydration Status: Acute Assessment and Plan: Still appears significantly dry on exam. Continue IV fluid hydration until tolerating PO (4) Type 2 diabetes mellitus: Code(s): E11.9 - Type 2 diabetes mellitus without complications Status: Inactive Assessment and Plan: A1c 5.0 Accuchecks ACHS, hypoglycemia protocol, correctional insulin, diabetic diet once tolerating diet (5) Hypokalemia: Code(s): E87.6 - Hypokalemia Status: Acute Assessment and Plan: K+ 3.0 today; replaced Monitor daily Replace as needed (6) Hypomagnesemia: Code(s): E83.42 - Hypomagnesemia Status: Acute Assessment and Plan: Mag 1.7 Monitor daily Replace as needed (7) Essential hypertension: Code(s): I10 - Essential (primary) hypertension Status: Inactive Assessment and Plan: BP elevated at 140s sys; episode of HTN into 200s sys overnight, as well - due to vomiting episode? unclear timing of episode Will resume home antihypertensive meds PRN hydralazine IV with parameters Monitor (8) Gastroesophageal reflux disease: Code(s): K21.9 - Gastro-esophageal reflux disease without esophagitis Status: Inactive Assessment and Plan: Continue home meds (9) Major depressive disorder: Code(s): F32.9 - Major depressive disorder, single episode, unspecified Status: Inactive Assessment and Plan: Continue home meds Subjective Date/time seen: 09/27/20 09:51 Interval history: Patient is a 65-year-old female with type 2 diabetes mellitus, hypertension, GERD, chronic anemia, and history of bilateral retinoblastoma status post enucleation who is seen in follow up for acute metabolic encephalopathy felt to be due to suspected UTI and meeting SIRS criteria with leukocytosis and tachypnea. Patient is awake, but tired. Easily falls asleep, but is arousable with verbal stimuli. More responsive today. Nursing reports episode of emesis this morning prior to shift change. Patient does not answer my orientation questions but does answer to yes/no questions. States she is tired today but denies chest pain, sob, abdominal pain. She does not answer most of my other questions at this time and quickly falls asl
[2020-09-27] MEDS: TOLNAFTATE 1% POWDER 45 GM BTL 1 APPLIC TOPICAL (09:52)
[2020-09-27] MEDS: ENOXAPARIN 40 MG/0.4 ML SYRINGE SUB-Q (09:52)
--- NOTE | 2020-09-27 11:55 | PM.CNGS ---
Assessment and Plan Assessment and plan (1) Metabolic encephalopathy: Code(s): G93.41 - Metabolic encephalopathy Status: Acute Assessment and Plan: cont mgmt per primary team, sl improvement per nursing, cont to correct lytes (2) Urinary tract infection: Code(s): N39.0 - Urinary tract infection, site not specified Status: Acute Assessment and Plan: cont mgmt per primary team, likely contributing cause of altered MS, cont abx (3) Gastric distention: Code(s): K31.89 - Other diseases of stomach and duodenum Status: Acute Assessment and Plan: likely ileus secondary to above issues, cont to follow, will place NG for decompression, further eval c SBS if warrented, cont serial exams for now, currently c benign exam History of Present Illness Consult details Consult date: 09/27/20 Reason for consult: other (gastric distention) Requesting physician: Loi Huggins PA-C Narrative: Pt is a 65 y/o F c multiple med issues presenting from [facility] c altered MS. Pt is noted to be quite lethargic and I am unable to obtain much of a history at this time. History is largely obtained via chart. Pt had KUB showing gastric distention. Pt noted to have some episode of N/V prior to arrival at [facility] per chart. 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 Type 2 diabetes mellitus Uterine cancer (~1998) Status post total hysterectomy. Surgical History Surgical History History of bilateral carpal tunnel release History of bilateral enucleation of eyeball As a child, for treatment of retinoblastoma. History of hysterectomy (~1998) As treatment for uterine cancer. History of ventral hernia repair (~03/2019) Incarcerated ventral hernia repair complicated by abdominal wall abscess and necrotizing soft tissue infection requiring multiple debridements and wound VAC. Family History Family History Mother Diabetes mellitus Father Acute myocardial infarction Sibling Acute myocardial infarction Mother Cerebrovascular accident Father Acute myocardial infarction Sibling Acute myocardial infarction Other Family history of arthritis Family history of cardiovascular disease Hypertension Social History Social History Social History: She is a resident at [facility]. Lifelong nonsmoker. No alcohol or illicit substance use. Her brother, Vinay morales, is her healthcare power of senior attorney. She is listed as a do not resuscitate. Spiritual care concerns: No Meds Home Medications and Allergies Home Medications Medication Instructions Recorded Confirmed Type albuterol sulfate 2 puff INHALATION QID PRN 06/26/19 06/26/19 History alprazolam [Xanax] 0.5 mg PO TID PRN 06/26/19 06/26/19 History amlodipine 5 mg PO DAILY 06/26/19 06/26/19 History duloxetine 30 mg PO DAILY 06/26/19 06/26/19 History duloxetine [Cymbalta] 60 mg PO DAILY 06/26/19 06/26/19 History enoxaparin 40 mg SUBCUT DAILY 06/26/19 06/26/19 History fluticasone furoate-vilanterol 1 inh INHALATION DAILY 06/26/19 06/26/19 History indapamide 2.5 mg PO BID 06/26/19 06/26/19 History losartan 100 mg PO DAILY 06/26/19 06/26/19 History meclizine 25 mg PO TID PRN 06/26/19 06/26/19 History metformin 500 mg PO DAILY 06/26/19 06/26/19 History potassium chloride 10 meq PO DAILY 06/26/19 06/26/19 History propranol
[2020-09-27 12:45] LABS: Glucose Point of Care 141 (65-105)
[2020-09-27 14:00] VITALS: BP 140/61; PULSE 76; RESP 18; TEMP 36.8; O2SAT 92
[2020-09-27 14:18] VITALS: BP 179/94; PULSE 78; RESP 20; TEMP 36.2; O2SAT 95
[2020-09-27 14:30] VITALS: PULSE 78
[2020-09-27] MEDS: ONDANSETRON INJ 4 MG/2 ML VIAL IV PUSH (14:30)
[2020-09-27] MEDS: METOPROLOL TARTRATE INJ 5 MG/5 ML VIAL IV PUSH ×2 (14:30→20:29)
[2020-09-27] MEDS: SODIUM CHLORIDE 0.9% IV 1,000 ML 75 ML IV CONT (14:30)
[2020-09-27 17:03] LABS: Glucose Point of Care 94 (65-105)
[2020-09-27 20:29] VITALS: PULSE 70
[2020-09-27 22:00] VITALS: BP 149/74; PULSE 72; RESP 16; TEMP 36.2; O2SAT 90
[2020-09-28] VITALS (8 sets, daily range): BP systolic 138–177; BP diastolic 75–88; PULSE 65–82; RESP 16–20; TEMP 36.1–36.5; O2SAT 92–95
[2020-09-28 00:23] LABS: Glucose Point of Care 96 (65-105)
[2020-09-28] MEDS: METOPROLOL TARTRATE INJ 5 MG/5 ML VIAL IV PUSH ×5 (00:27→23:32)
[2020-09-28] MEDS: SODIUM CHLORIDE 0.9% IV 1,000 ML 75 ML IV CONT (03:43)
[2020-09-28 05:57] LABS: Basophils Percent Auto 0.4 % (0.2-1.2); Eosinophils Absolute Auto 0.2 K/mm3 (0-0.3); Eosinophils Percent Auto 2.2 % (0-4.4); Hematocrit 37.7 % (37.0-47.0); Hemoglobin 12.4 g/dL (12.0-15.0); Immature Granulocyte Absolute 0.05 K/mm3 (0.00-0.031); Immature Granulocyte Percent A 0.5 % (0-0.5); Lymphocytes Absolute Auto 1.45 K/mm3 (0.9-3.2); Lymphocytes Percent Auto 15.8 % (18.3-44.2); Mean Corpuscular HGB Conc 32.9 g/dl (32-36); Mean Corpuscular Volume 88.3 fl (80-100); Mean Platelet Volume 9.2 fl (7.4-10.4); Monocytes Absolute Auto 1.1 K/mm3 (0.1-0.6); Monocytes Percent Auto 11.8 % (2.6-8.5); Neutrophils Absolute Auto 6.4 K/mm3 (1.3-6.7); Neutrophils Percent Auto 69.3 % (45.5-73.1); Platelet Count Result 192 k/mm3 (150-375); Red Blood Count 4.27 M/mm3 (4.2-5.4); Red Cell Distribution Width 14.1 % (11.5-14.5); White Blood Count 9.2 K/mm3 (4.5-10.0)
[2020-09-28 06:18] LABS: Alanine Aminotransferase 8 U/L (4-35); Albumin Level 3.3 g/dL (3.5-5.1); Alkaline Phosphatase 83 U/L (38-126); Anion Gap 4 mmol/L (8-16); Aspartate Amino Transferase 22 U/L (14-36); Bilirubin,Total 0.4 mg/dL (0.2-1.3); Blood Urea Nitrogen 28 mg/dL (7-17); Calcium 8.6 mg/dL (8.4-10.2); Carbon Dioxide 31 mmol/L (22-30); Chloride 101 mmol/L (98-107); Estimated CRCL calculation 53 ml/min; Estimated Glomerular Filt Rate > 60; Glucose 85 mg/dL (65-105); Magnesium 1.6 mg/dL (1.6-2.3); Potassium 2.8 mmol/L (3.4-5.0); Sodium 136 mmol/L (137-145)
--- NOTE | 2020-09-28 09:17 | PM.PNGS ---
Progress Note: A&P Assessment and Plan (1) Gastric distention: Code(s): K31.89 - Other diseases of stomach and duodenum Status: Acute Assessment and Plan: will get CT for further evaluation, exam benign this am Subjective Subjective Date/Time Seen: 09/28/20 09:17 still confused and lethargic, denies abd pain, pulled NG out twice overnight, did have emesis yesterday Review of Systems Review of Systems: ROS unobtainable: Yes unobtainable due to medical condition and unobtainable due to mental status Exam Const: General: lethargic and patient obtunded Nutritional Appearance: obese Resp: Auscultation: clear to auscultation bilaterally Cardio: Rate: regular rate Rhythm: regular rhythm GI: Inspection: normal to inspection, non-distended and no incisions GI Palp: Yes Soft to palpation, No Tenderness to palpation present (GI), No Guarding due to palpation present (GI) and No Rigid due to palpation Other: soft, NT, ND Objective Data Vital Signs Vital Signs: Vital Signs - 24 hr 09/27/20 14:00 09/27/20 14:18 09/27/20 14:30 Temperature 36.8 C 36.2 C L Pulse Rate 76 78 78 Respiratory Rate 18 20 Blood Pressure 140/61 179/94 H Pulse Oximetry 92 95 09/27/20 20:29 09/27/20 22:00 09/28/20 00:27 Temperature 36.2 C L Pulse Rate 70 72 70 Respiratory Rate 16 Blood Pressure 149/74 H Pulse Oximetry 90 09/28/20 00:31 09/28/20 04:57 09/28/20 07:23 Temperature 36.1 C L 36.5 C Pulse Rate 72 82 68 Respiratory Rate 18 16 Blood Pressure 174/78 H 138/76 Pulse Oximetry 93 93 Intake/Output Intake/Output: Intake & Output 09/25/20 09/26/20 09/27/20 09/28/20 23:59 23:59 23:59 23:59 Intake Total 1050 2550 1550 1000 Output Total 1900 1300 Balance 1050 2550 -350 -300 Meds/Results Medications: Active Medications Generic Name Dose Route Start Last Admin Trade Name Freq PRN Reason Stop Dose Admin Dextrose 12.5 gm 09/25/20 23:30 Dextrose 50% 25 Gm/50 Ml Syringe IV PUSH PRN PRN Hypoglycemia Protocol Duloxetine HCl 60 mg 09/26/20 09:00 09/27/20 13:16 Duloxetine Hcl 60 Mg Capsule.Dr PO Not Given DAILY [facility] Enoxaparin Sodium 40 mg 09/26/20 09:00 09/27/20 09:52 Enoxaparin 40 Mg/0.4 Ml Syringe SUB-Q 40 mg DAILY CARLOS Administration Glucagon 1 mg 09/25/20 23:30 Glucagon For Inj 1 Mg Vial IM PRN PRN Hypoglycemia Protocol Glucose 15 gm 09/25/20 23:30 Glucose Oral Gel 15 Gm Of Glucse In 37.5 Gm Tube PO PRN PRN Hypoglycemia Protocol Hydralazine HCl 5 mg 09/25/20 23:31 09/26/20 20:37 Hydralazine Hcl 20 Mg/Ml Vial IV PUSH 5 mg Q6H PRN Administration SBP > 165 or DBP > 105 Ceftriaxone Sodium/Dextrose 1 gm in 50 mls @ 100 mls/hr 09/25/20 17:00 09/27/20 17:14 Rocephin 1 Gm/D5w 50 Ml IVPB Infused Q24H CARLOS Infusion Dextrose 1,000 mls @ 100 mls/hr 09/25/20 23:30 Dextrose 5% 1,000 Ml IVPB PRN PRN Hypoglycemia Protocol Potassium Chloride 500 mls @ 125 mls/hr 09/28/20 07:15 09/28/20 07:28 Kcl 40 Meq/D5w 500 Ml Peripheral IVPB 09/28/20 11:14 125 mls/hr ONCE ONE Administration Potassium Chloride/Sodium Chloride 1,000 mls @ 75 mls/hr 09/28/20 11:30 Kcl 20 Meq/Ns IV CONT .[id number] [facility] Indapamide 2.5 mg 09/26/20 09:00 09/27/20 13:16 Indapamide 2.5 Mg Tablet PO Not Given BID [facility] Insulin Aspart 2 - 5 units 09/26/20 08:00 09/27/20 16:56 Insulin Aspart (*Bkc) 100 Units/Ml SUB-Q Not Given TIDWM [facility] Protocol Losartan Potassium 100 mg 09/26/20 09:00 09/27/20 13:16 Losartan Potassium 100 Mg Tablet PO Not Given DAILY [facility] Metoprolol Tartrate 5 mg 09/27/20 12:00 09/28/20 07:23 Metoprolol Tartrate Inj 5 Mg/5 Ml Vial IV PUSH 5 mg Q6HR CARLOS Administration Ondansetron HCl 4 mg 09/25/20 15:14 09/27/20 14:30 Ondansetron Inj 4 Mg/2 Ml Vial IV PUSH 4 mg Q4H PRN Administration Nausea Pantoprazo
[2020-09-28 09:24] LABS: Glucose Point of Care 100 (65-105)
[2020-09-28] MEDS: PANTOPRAZOLE SODIUM IV 40 MG VIAL IV PUSH (10:30)
[2020-09-28] MEDS: ENOXAPARIN 40 MG/0.4 ML SYRINGE SUB-Q (10:30)
[2020-09-28 11:54] LABS: Potassium 3.2 mmol/L (3.4-5.0)
[2020-09-28 12:21] LABS: Glucose Point of Care 84 (65-105)
--- NOTE | 2020-09-28 12:23 | P.PNIM_ITS ---
Progress Note: A&P Assessment and Plan (1) Urinary tract infection: Code(s): N39.0 - Urinary tract infection, site not specified Status: Acute Assessment and Plan: UA suspicious for UTI; UCx growing E. coli sensitive to Rocephin and BCx NGTD x 2 after 3 days. Patient technically met SIRS criteria with leukocytosis and tachypnea; RR has improved, leukocytosis resolved. Lactic acid WNL. Patient placed on IV Rocephin from the ED * Continue IV Rocephin for now; switch to PO cefdinir once mental status improve s, possibly 1-2 days * Continue IV fluids for rehydration * Monitor leukocytosis and clinical status (2) Ileus: Code(s): K56.7 - Ileus, unspecified Status: Acute Assessment and Plan: Patient has had multiple episodes of vomiting since arrival. KUB obtained yesterday which showed gaseous distension of stomach, suggesting ileus. Dr. Clemens (General Surgery) subsequently consulted for further input; appreciate r ecommendations. Recommended NPO/NG tube to int suction, however patient removed yesterday. CT abd/pelvis ordered per Surgery; pending results * Will await CT results * If okay with Surgery, and if no significant findings on CT imaging today, will consider advancing diet due to improved mental status * Monitor * Await further rec from Surgery (3) Metabolic encephalopathy: Code(s): G93.41 - Metabolic encephalopathy Status: Acute Assessment and Plan: The patient presented to the emergency department with altered mental status, felt to be metabolic encephalopathy from underlying infection and dehydration. This appears to have significantly improved overnight. * Will continue with IV fluids and treatment for UTI; see above * Monitor for improvement (4) Dehydration: Code(s): E86.0 - Dehydration Status: Acute Assessment and Plan: Still appears this has improved overnight * Continue IV fluid hydration until tolerating PO (5) Type 2 diabetes mellitus: Code(s): E11.9 - Type 2 diabetes mellitus without complications Status: Inactive Assessment and Plan: A1c 5.0 * Accuchecks Q6hr, hypoglycemia protocol, correctional insulin, diabetic diet once tolerating diet (6) Hypokalemia: Code(s): E87.6 - Hypokalemia Status: Acute Assessment and Plan: K+ 2.8 this morning; replaced. Repeat 3.2 now * Monitor daily * Replace as needed * Will start 20 mEQ KCl/NS IV fluids while NPO (7) Hypomagnesemia: Code(s): E83.42 - Hypomagnesemia Status: Acute Assessment and Plan: Mag 1.6 * Monitor daily * Replace as needed (8) Essential hypertension: Code(s): I10 - Essential (primary) hypertension Status: Inactive Assessment and Plan: BP variable as she has not had her home meds due to NPO status. BP 130s sys most recently * PRN hydralazine IV with parameters * Monitor (9) Gastroesophageal reflux disease: Code(s): K21.9 - Gastro-esophageal reflux disease without esophagitis Status: Inactive Assessment and Plan: * Continue home meds (10) Major depressive disorder: Code(s): F32.9 - Major depressive disorder, single episode, unspecified Status: Inactive Asses
--- NOTE | 2020-09-28 12:23 | PM.IMPN ---
Progress Note: A&P Assessment and Plan (1) Urinary tract infection: Code(s): N39.0 - Urinary tract infection, site not specified Status: Acute Assessment and Plan: UA suspicious for UTI; UCx growing E. coli sensitive to Rocephin and BCx NGTD x 2 after 3 days. Patient technically met SIRS criteria with leukocytosis and tachypnea; RR has improved, leukocytosis resolved. Lactic acid WNL. Patient placed on IV Rocephin from the ED Continue IV Rocephin for now; switch to PO cefdinir once mental status improves, possibly 1-2 days Continue IV fluids for rehydration Monitor leukocytosis and clinical status (2) Ileus: Code(s): K56.7 - Ileus, unspecified Status: Acute Assessment and Plan: Patient has had multiple episodes of vomiting since arrival. KUB obtained yesterday which showed gaseous distension of stomach, suggesting ileus. Dr. Clemens (General Surgery) subsequently consulted for further input; appreciate recommendations. Recommended NPO/NG tube to int suction, however patient removed yesterday. CT abd/pelvis ordered per Surgery; pending results Will await CT results If okay with Surgery, and if no significant findings on CT imaging today, will consider advancing diet due to improved mental status Monitor Await further rec from Surgery (3) Metabolic encephalopathy: Code(s): G93.41 - Metabolic encephalopathy Status: Acute Assessment and Plan: The patient presented to the emergency department with altered mental status, felt to be metabolic encephalopathy from underlying infection and dehydration. This appears to have significantly improved overnight. Will continue with IV fluids and treatment for UTI; see above Monitor for improvement (4) Dehydration: Code(s): E86.0 - Dehydration Status: Acute Assessment and Plan: Still appears this has improved overnight Continue IV fluid hydration until tolerating PO (5) Type 2 diabetes mellitus: Code(s): E11.9 - Type 2 diabetes mellitus without complications Status: Inactive Assessment and Plan: A1c 5.0 Accuchecks Q6hr, hypoglycemia protocol, correctional insulin, diabetic diet once tolerating diet (6) Hypokalemia: Code(s): E87.6 - Hypokalemia Status: Acute Assessment and Plan: K+ 2.8 this morning; replaced. Repeat 3.2 now Monitor daily Replace as needed Will start 20 mEQ KCl/NS IV fluids while NPO (7) Hypomagnesemia: Code(s): E83.42 - Hypomagnesemia Status: Acute Assessment and Plan: Mag 1.6 Monitor daily Replace as needed (8) Essential hypertension: Code(s): I10 - Essential (primary) hypertension Status: Inactive Assessment and Plan: BP variable as she has not had her home meds due to NPO status. BP 130s sys most recently PRN hydralazine IV with parameters Monitor (9) Gastroesophageal reflux disease: Code(s): K21.9 - Gastro-esophageal reflux disease without esophagitis Status: Inactive Assessment and Plan: Continue home meds (10) Major depressive disorder: Code(s): F32.9 - Major depressive disorder, single episode, unspecified Status: Inactive Assessment and Plan: Continue home meds Subjective Date/time seen: 09/28/20 12:23 Interval history: Patient is a 65-year-old female with type 2 diabetes mellitus, hypertension, GERD, chronic anemia, and history of bilateral retinoblastoma status post enucleation who is seen in follow up for acute metabolic encephalopathy felt to be due to suspected UTI and meeting SIRS
[2020-09-28 13:28] LABS: SARS-CoV-2 RNA PCR Negative
[2020-09-28] MEDS: KCL 20MEQ/0.9% SOD CHL 1,000 ML 75 ML IV CONT (14:39)
[2020-09-28 18:34] LABS: Glucose Point of Care 80 (65-105)
[2020-09-28 23:18] LABS: Glucose Point of Care 73 (65-105)
[2020-09-29] VITALS (8 sets, daily range): BP systolic 160–205; BP diastolic 61–100; PULSE 75–95; RESP 16–20; TEMP 36.1–36.4; O2SAT 90–97
[2020-09-29] MEDS: KCL 20MEQ/0.9% SOD CHL 1,000 ML 75 ML IV CONT ×2 (04:02→23:44)
[2020-09-29 05:16] LABS: Basophils Absolute Auto 0.1 K/mm3 (0.0-0.1); Basophils Percent Auto 0.7 % (0.2-1.2); Eosinophils Absolute Auto 0.4 K/mm3 (0-0.3); Eosinophils Percent Auto 4.8 % (0-4.4); Hematocrit 36.9 % (37.0-47.0); Hemoglobin 12.6 g/dL (12.0-15.0); Immature Granulocyte Absolute 0.03 K/mm3 (0.00-0.031); Immature Granulocyte Percent A 0.4 % (0-0.5); Lymphocytes Absolute Auto 1.56 K/mm3 (0.9-3.2); Lymphocytes Percent Auto 18.6 % (18.3-44.2); Mean Corpuscular HGB Conc 34.1 g/dl (32-36); Mean Corpuscular Volume 84.8 fl (80-100); Monocytes Absolute Auto 0.9 K/mm3 (0.1-0.6); Monocytes Percent Auto 11.1 % (2.6-8.5); Neutrophils Absolute Auto 5.4 K/mm3 (1.3-6.7); Neutrophils Percent Auto 64.4 % (45.5-73.1); Platelet Count Result 192 k/mm3 (150-375); Red Blood Count 4.35 M/mm3 (4.2-5.4); Red Cell Distribution Width 13.5 % (11.5-14.5); White Blood Count 8.4 K/mm3 (4.5-10.0)
[2020-09-29] MEDS: METOPROLOL TARTRATE INJ 5 MG/5 ML VIAL IV PUSH ×4 (05:22→23:42)
[2020-09-29 05:53] LABS: Anion Gap 2 mmol/L (8-16); Blood Urea Nitrogen 21 mg/dL (7-17); Calcium 8.3 mg/dL (8.4-10.2); Carbon Dioxide 30 mmol/L (22-30); Chloride 102 mmol/L (98-107); Estimated CRCL calculation 54 ml/min; Estimated Glomerular Filt Rate > 60; Glucose 78 mg/dL (65-105); Magnesium 1.4 mg/dL (1.6-2.3); Potassium 2.9 mmol/L (3.4-5.0); Sodium 134 mmol/L (137-145)
[2020-09-29] MEDS: MAGNESIUM SULF 2 GM/WATER 50ML 2 GM/50 ML BAG IVPB (07:34)
[2020-09-29] MEDS: PANTOPRAZOLE SODIUM IV 40 MG VIAL IV PUSH (07:43)
[2020-09-29] MEDS: ENOXAPARIN 40 MG/0.4 ML SYRINGE SUB-Q (07:43)
[2020-09-29 08:13] LABS: Glucose Point of Care 78 (65-105)
[2020-09-29 09:28] LABS: Glucose Point of Care 75 (65-105)
--- NOTE | 2020-09-29 10:33 | PM.IMPN ---
Progress Note: A&P Assessment and Plan (1) Urinary tract infection: Code(s): N39.0 - Urinary tract infection, site not specified Status: Acute Assessment and Plan: UA suspicious for UTI; UCx growing E. coli sensitive to Rocephin and BCx NGTD x 2 after 4 days. Patient technically met SIRS criteria with leukocytosis and tachypnea; RR has improved, leukocytosis resolved. Lactic acid WNL. Patient placed on IV Rocephin from the ED Continue IV Rocephin for now; switch to PO cefdinir once diet is advanced per General Surgery; see below Continue IV fluids for hydration while NPO Monitor labs (2) SBO (small bowel obstruction): Code(s): K56.609 - Unspecified intestinal obstruction, unspecified as to partial versus complete obstruction Status: Acute Assessment and Plan: Patient has had multiple episodes of vomiting since arrival. KUB obtained 09/27 which showed gaseous distension of stomach, suggesting ileus. Dr. Clemens (General Surgery) subsequently consulted for further input; appreciate recommendations. CT abd/pelvis 09/28 showed evidence of SBO with transition point in mid pelvis. Xr 09/29 shows persistent SBO. Patient pulled NGT out earlier in stay due to AMS. Patient remains NPO given persistent SBO Await further rec from Surgery Continue IV fluids and IV antibiotics while NPO. Scheduled IV Beta raven while NPO, as well (3) Metabolic encephalopathy: Code(s): G93.41 - Metabolic encephalopathy Status: Resolved Assessment and Plan: The patient presented to the emergency department with altered mental status, felt to be metabolic encephalopathy from underlying infection and dehydration. This appears to have resolved. Will continue with IV fluids and treatment for UTI; see above Monitor (4) Dehydration: Code(s): E86.0 - Dehydration Status: Resolved Assessment and Plan: Appears to be at or near euvolemia, but still on NPO status Continue IV fluid hydration until diet advanced (5) Type 2 diabetes mellitus: Code(s): E11.9 - Type 2 diabetes mellitus without complications Status: Inactive Assessment and Plan: A1c 5.0 Accuchecks Q6hr, hypoglycemia protocol, correctional insulin, diabetic diet once tolerating diet (6) Hypokalemia: Code(s): E87.6 - Hypokalemia Status: Acute Assessment and Plan: K+ 2.9 this morning; replaced. BMP ordered for 1400 Monitor daily Replace as needed Consider increasing IV fluids from 20 mEq KCl/NS to 40 mEq while NPO (7) Hypomagnesemia: Code(s): E83.42 - Hypomagnesemia Status: Acute Assessment and Plan: Mag 1.4; replaced. Mag level ordered for 1400 Monitor daily Replace as needed (8) Essential hypertension: Code(s): I10 - Essential (primary) hypertension Status: Inactive Assessment and Plan: BP variable as she has not had her home meds due to NPO status. BP 160s sys most recently PRN hydralazine IV with parameters Continue scheduled Lopressor 5 mg IV Q6hr while NPO Monitor (9) Gastroesophageal reflux disease: Code(s): K21.9 - Gastro-esophageal reflux disease without esophagitis Status: Inactive Assessment and Plan: Continue home meds (10) Major depressive disorder: Code(s): F32.9 - Major depressive disorder, single episode, unspecified Status: Inactive Assessment and Plan: Continue home meds Subjective Date/time seen: 09/29/20 10:33 Interval history: Patient is a 65-year-old female with type 2 diabetes mellitus, hypertension, GERD,
--- NOTE | 2020-09-29 11:19 | PM.PNGS ---
Progress Note: A&P Assessment and Plan (1) SBO (small bowel obstruction): Code(s): K56.609 - Unspecified intestinal obstruction, unspecified as to partial versus complete obstruction Status: Acute Assessment and Plan: exam cont to be benign, will try clears Subjective Subjective Date/Time Seen: 09/29/20 11:19 no acute issues overnight, reports she is hungry and would like a diet pepsi, still lethargic and confused Review of Systems Review of Systems: ROS unobtainable: Yes unobtainable due to mental status Exam Const: General: confusion and lethargic Resp: Effort & Inspection: normal respiratory effort Auscultation: diminished lung sounds Cardio: Rate: regular rate Rhythm: regular rhythm GI: Inspection: normal to inspection, non-distended and no incisions GI Palp: Yes Soft to palpation, No Tenderness to palpation present (GI), No Guarding due to palpation present (GI) and No Rigid due to palpation Other: soft, NT, ND, hypoactive bs Objective Data Vital Signs Vital Signs: Vital Signs - 24 hr 09/28/20 14:00 09/28/20 18:48 09/28/20 22:00 Temperature 36.5 C 36.3 C L 36.2 C L Pulse Rate 67 69 65 Respiratory Rate 20 20 16 Blood Pressure 163/75 H 177/88 H 153/85 H Pulse Oximetry 92 92 95 09/28/20 23:32 09/29/20 05:04 09/29/20 05:22 Temperature 36.1 C L Pulse Rate 80 94 80 Respiratory Rate 20 Blood Pressure 162/84 H Pulse Oximetry 97 Intake/Output Intake/Output: Intake & Output 09/26/20 09/27/20 09/28/20 09/29/20 23:59 23:59 23:59 23:59 Intake Total 2550 1550 1975 1050 Output Total 1900 1300 Balance 2550 -888 020 9167 Meds/Results Medications: Active Medications Generic Name Dose Route Start Last Admin Trade Name Freq PRN Reason Stop Dose Admin Dextrose 12.5 gm 09/25/20 23:30 Dextrose 50% 25 Gm/50 Ml Syringe IV PUSH PRN PRN Hypoglycemia Protocol Duloxetine HCl 60 mg 09/26/20 09:00 09/27/20 13:16 Duloxetine Hcl 60 Mg Capsule. PO Not Given DAILY [facility] Enoxaparin Sodium 40 mg 09/26/20 09:00 09/29/20 07:43 Enoxaparin 40 Mg/0.4 Ml Syringe SUB-Q 40 mg DAILY [facility] Administration Glucagon 1 mg 09/25/20 23:30 Glucagon For Inj 1 Mg Vial IM PRN PRN Hypoglycemia Protocol Glucose 15 gm 09/25/20 23:30 Glucose Oral Gel 15 Gm Of Glucse In 37.5 Gm Tube PO PRN PRN Hypoglycemia Protocol Hydralazine HCl 5 mg 09/25/20 23:31 09/26/20 20:37 Hydralazine Hcl 20 Mg/Ml Vial IV PUSH 5 mg Q6H PRN Administration SBP > 165 or DBP > 105 Ceftriaxone Sodium/Dextrose 1 gm in 50 mls @ 100 mls/hr 09/25/20 17:00 09/28/20 17:40 Rocephin 1 Gm/D5w 50 Ml IVPB Infused Q24H [facility] Infusion Dextrose 1,000 mls @ 100 mls/hr 09/25/20 23:30 Dextrose 5% 1,000 Ml IVPB PRN PRN Hypoglycemia Protocol Potassium Chloride/Sodium Chloride 1,000 mls @ 75 mls/hr 09/28/20 11:30 09/29/20 07:35 Kcl 20 Meq/Ns IV CONT 0 mls/hr .[id number] [facility] Infusion Indapamide 2.5 mg 09/26/20 09:00 09/27/20 13:16 Indapamide 2.5 Mg Tablet PO Not Given BID [facility] Insulin Aspart 2 - 5 units 09/26/20 08:00 09/29/20 07:42 Insulin Aspart (*Bkc) 100 Units/Ml SUB-Q Not Given TIDWM [facility] Protocol Losartan Potassium 100 mg 09/26/20 09:00 09/27/20 13:16 Losartan Potassium 100 Mg Tablet PO Not Given DAILY [facility] Metoprolol Tartrate 5 mg 09/27/20 12:00 09/29/20 05:22 Metoprolol Tartrate Inj 5 Mg/5 Ml Vial IV PUSH 5 mg Q6HR [facility] Administration Ondansetron HCl 4 mg 09/25/20 15:14 09/27/20 14:30 Ondansetron Inj 4 Mg/2 Ml Vial IV PUSH 4 mg Q4H PRN Administration Nausea Pantoprazole Sodium 40 mg 09/26/20 09:00 09/27/20 13:16 Pantoprazole 40 Mg Tablet PO 10/26/20 09:01 Not Given DAILY [facility] Pantoprazole Sodium 40 mg 09/28/20 09:00 09/29/20 07:43 Pantoprazole Sodium Iv 40 Mg Vial IV PUSH 40 mg QAM [facility] Administration Potassium Chlori
[2020-09-29 12:38] LABS: Glucose Point of Care 86 (65-105)
[2020-09-29 14:10] LABS: Anion Gap 1 mmol/L (8-16); Blood Urea Nitrogen 19 mg/dL (7-17); Calcium 8.2 mg/dL (8.4-10.2); Carbon Dioxide 28 mmol/L (22-30); Chloride 101 mmol/L (98-107); Estimated CRCL calculation 61 ml/min; Estimated Glomerular Filt Rate > 60; Glucose 96 mg/dL (65-105); Magnesium 1.8 mg/dL (1.6-2.3); Potassium 3.3 mmol/L (3.4-5.0); Sodium 130 mmol/L (137-145)
[2020-09-29] MEDS: KCL 20 MEQ/SW 100 ML 100 ML 50 MEQ IVPB (16:03)
[2020-09-29 16:25] LABS: Glucose Point of Care 96 (65-105)
[2020-09-29] MEDS: hydrALAZINE HCL 20 MG/ML VIAL 5 MG IV PUSH (21:20)
[2020-09-29 23:53] LABS: Glucose Point of Care 132 (65-105)
[2020-09-30] VITALS (13 sets, daily range): BP systolic 158–210; BP diastolic 90–110; PULSE 70–117; RESP 16–18; TEMP 36.4–37.1; O2SAT 91–92
[2020-09-30 05:35] LABS: Hematocrit 38.6 % (37.0-47.0); Hemoglobin 13.5 g/dL (12.0-15.0); Mean Corpuscular Hemoglobin 29.6 pg (26-34); Mean Corpuscular Volume 84.6 fl (80-100); Mean Platelet Volume 9.1 fl (7.4-10.4); Platelet Count Result 189 k/mm3 (150-375); Red Blood Count 4.56 M/mm3 (4.2-5.4); Red Cell Distribution Width 13.9 % (11.5-14.5); White Blood Count 9.4 K/mm3 (4.5-10.0)
[2020-09-30 05:51] LABS: Anion Gap 7 mmol/L (8-16); Blood Urea Nitrogen 14 mg/dL (7-17); Calcium 8.4 mg/dL (8.4-10.2); Carbon Dioxide 27 mmol/L (22-30); Chloride 99 mmol/L (98-107); Estimated CRCL calculation 54 ml/min; Estimated Glomerular Filt Rate > 60; Glucose 103 mg/dL (65-105); Magnesium 1.4 mg/dL (1.6-2.3); Potassium 3.3 mmol/L (3.4-5.0); Sodium 133 mmol/L (137-145)
[2020-09-30] MEDS: METOPROLOL TARTRATE INJ 5 MG/5 ML VIAL IV PUSH ×4 (05:51→23:34)
[2020-09-30 07:42] LABS: Glucose Point of Care 119 (65-105)
[2020-09-30 07:50] LABS: Glucose Point of Care 120 (65-105)
--- NOTE | 2020-09-30 08:45 | PC.NURSE ---
To Radiology per stretcher
[2020-09-30] MEDS: PANTOPRAZOLE SODIUM IV 40 MG VIAL IV PUSH (09:00)
[2020-09-30] MEDS: ENOXAPARIN 40 MG/0.4 ML SYRINGE SUB-Q (09:00)
--- NOTE | 2020-09-30 10:15 | PC.NURSE ---
Returned from Radiology.
[2020-09-30] MEDS: KCL 20 MEQ/SW 100 ML 100 ML 50 MEQ IVPB (10:51)
--- NOTE | 2020-09-30 11:27 | PM.IMPN ---
Progress Note: A&P Assessment and Plan (1) Urinary tract infection: Code(s): N39.0 - Urinary tract infection, site not specified Status: Acute Assessment and Plan: UA suspicious for UTI; UCx growing E. coli sensitive to Rocephin and BCx NGTD x 2 after 5 days. Patient technically met SIRS criteria with leukocytosis and tachypnea; RR has improved, leukocytosis resolved. Lactic acid WNL. Patient placed on IV Rocephin from the ED Continue IV Rocephin for now (day 6); likely continue to complete 7 days total Continue IV fluids for hydration while NPO Monitor labs (2) SBO (small bowel obstruction): Code(s): K56.609 - Unspecified intestinal obstruction, unspecified as to partial versus complete obstruction Status: Acute Assessment and Plan: Patient has had multiple episodes of vomiting since arrival. KUB obtained 09/27 which showed gaseous distension of stomach, suggesting ileus. Dr. Clemens (General Surgery) subsequently consulted for further input; appreciate recommendations. CT abd/pelvis 09/28 showed evidence of SBO with transition point in mid pelvis. Xr 09/29 shows persistent SBO. Patient pulled NGT out earlier in stay due to AMS. Appears to have vomited during SBFT study Patient remains NPO given persistent SBO Await further rec from Surgery Continue IV fluids and IV antibiotics while NPO. Scheduled IV Beta raven while NPO, as well (3) Metabolic encephalopathy: Code(s): G93.41 - Metabolic encephalopathy Status: Resolved Assessment and Plan: The patient presented to the emergency department with altered mental status, felt to be metabolic encephalopathy from underlying infection and dehydration. This appears to have resolved. Will continue with IV fluids and treatment for UTI; see above Monitor (4) Dehydration: Code(s): E86.0 - Dehydration Status: Resolved Assessment and Plan: Appears to be at or near euvolemia, but still on NPO status Continue IV fluid hydration until diet advanced (5) Type 2 diabetes mellitus: Code(s): E11.9 - Type 2 diabetes mellitus without complications Status: Inactive Assessment and Plan: A1c 5.0 Accuchecks Q6hr, hypoglycemia protocol, correctional insulin, diabetic diet once tolerating diet (6) Hypokalemia: Code(s): E87.6 - Hypokalemia Status: Acute Assessment and Plan: K+ 3.3 this morning; replaced. Monitor daily Replace as needed Continue IV NS/KCL 20 mEq Will consider increasing IV fluids from 20 mEq KCl/NS to 40 mEq while NPO (7) Hypomagnesemia: Code(s): E83.42 - Hypomagnesemia Status: Acute Assessment and Plan: Mag 1.4; replaced. Monitor daily Replace as needed (8) Essential hypertension: Code(s): I10 - Essential (primary) hypertension Status: Inactive Assessment and Plan: BP variable as she has not had her home meds due to NPO status. BP 150s sys most recently PRN hydralazine IV with parameters Continue scheduled Lopressor 5 mg IV Q6hr while NPO Monitor (9) Gastroesophageal reflux disease: Code(s): K21.9 - Gastro-esophageal reflux disease without esophagitis Status: Inactive Assessment and Plan: Continue home meds (10) Major depressive disorder: Code(s): F32.9 - Major depressive disorder, single episode, unspecified Status: Inactive Assessment and Plan: Continue home meds Subjective Date/time seen: 09/30/20 11:27 Interval history: Patient is a 65-year-old female with type 2 diabetes mellitus, hypertension, GERD
[2020-09-30 11:59] LABS: Glucose Point of Care 120 (65-105)
[2020-09-30] MEDS: hydrALAZINE HCL 20 MG/ML VIAL 5 MG IV PUSH (13:46)
--- NOTE | 2020-09-30 14:29 | PM.PNGS ---
Progress Note: A&P Assessment and Plan (1) SBO (small bowel obstruction): Code(s): K56.609 - Unspecified intestinal obstruction, unspecified as to partial versus complete obstruction Status: Acute Assessment and Plan: exam cont to be benign, given difficult surgical history and history of mesh would like to manage conservatively if possible, place NG if develops N/V Subjective Subjective Date/Time Seen: 09/30/20 14:29 no acute issues overnight, some reported N/V, but currently no abd pain or nausea Review of Systems Review of Systems: ROS unobtainable: Yes unobtainable due to mental status Exam Const: General: comfortable and no acute distress Orientation/consciousness: oriented to person, oriented to place, No oriented to time and confusion Resp: Auscultation: clear to auscultation bilaterally Cardio: Rate: regular rate Rhythm: regular rhythm GI: Inspection: normal to inspection, non-distended, incision and obesity GI Palp: Yes Soft to palpation, No Tenderness to palpation present (GI), No Guarding due to palpation present (GI) and No Rigid due to palpation Objective Data Vital Signs Vital Signs: Vital Signs - 24 hr 09/29/20 18:15 09/29/20 20:00 09/29/20 21:54 Temperature 36.4 C L Pulse Rate 91 95 95 Respiratory Rate 16 16 Blood Pressure 205/100 H Pulse Oximetry 90 90 09/29/20 22:15 09/29/20 23:42 09/30/20 05:51 Temperature Pulse Rate 86 78 Respiratory Rate Blood Pressure 160/80 H Pulse Oximetry 09/30/20 06:00 09/30/20 12:49 09/30/20 13:02 Temperature 36.4 C L Pulse Rate 96 70 Respiratory Rate 16 Blood Pressure 159/93 H 200/100 H Pulse Oximetry 92 09/30/20 13:54 09/30/20 14:24 Temperature Pulse Rate 80 Respiratory Rate Blood Pressure 200/110 H 180/90 H Pulse Oximetry Intake/Output Intake/Output: Intake & Output 09/27/20 09/28/20 09/29/20 09/30/20 23:59 23:59 23:59 23:59 Intake Total 1550 1975 4080 100 Output Total 1900 1300 Balance -314 267 4628 100 Meds/Results Medications: Active Medications Generic Name Dose Route Start Last Admin Trade Name Freq PRN Reason Stop Dose Admin Dextrose 12.5 gm 09/25/20 23:30 Dextrose 50% 25 Gm/50 Ml Syringe IV PUSH PRN PRN Hypoglycemia Protocol Duloxetine HCl 60 mg 09/26/20 09:00 09/27/20 13:16 Duloxetine Hcl 60 Mg Capsule.Dr PO Not Given DAILY [facility] Enoxaparin Sodium 40 mg 09/26/20 09:00 09/30/20 09:00 Enoxaparin 40 Mg/0.4 Ml Syringe SUB-Q 40 mg DAILY [facility] Administration Glucagon 1 mg 09/25/20 23:30 Glucagon For Inj 1 Mg Vial IM PRN PRN Hypoglycemia Protocol Glucose 15 gm 09/25/20 23:30 Glucose Oral Gel 15 Gm Of Glucse In 37.5 Gm Tube PO PRN PRN Hypoglycemia Protocol Hydralazine HCl 5 mg 09/25/20 23:31 09/30/20 13:46 Hydralazine Hcl 20 Mg/Ml Vial IV PUSH 5 mg Q6H PRN Administration SBP > 165 or DBP > 105 Hydrocortisone 1 applic 09/30/20 14:00 Hydrocortisone 1% 30 Gm Cream TOPICAL Q12HR [facility] Ceftriaxone Sodium/Dextrose 1 gm in 50 mls @ 100 mls/hr 09/25/20 17:00 09/29/20 18:50 Rocephin 1 Gm/D5w 50 Ml IVPB Infused Q24H [facility] Infusion Dextrose 1,000 mls @ 100 mls/hr 09/25/20 23:30 Dextrose 5% 1,000 Ml IVPB PRN PRN Hypoglycemia Protocol Potassium Chloride/Sodium Chloride 1,000 mls @ 75 mls/hr 09/28/20 11:30 09/29/20 23:44 Kcl 20 Meq/Ns IV CONT 75 mls/hr .[id number] [facility] Administration Indapamide 2.5 mg 09/26/20 09:00 09/27/20 13:16 Indapamide 2.5 Mg Tablet PO Not Given BID [facility] Insulin Aspart 2 - 5 units 09/26/20 08:00 09/30/20 12:40 Insulin Aspart (*Bkc) 100 Units/Ml SUB-Q Not Given TIDWM [facility] Protocol Losartan Potassium 100 mg 09/26/20 09:00 09/27/20 13:16 Losartan Potassium 100 Mg Tablet PO Not Given DAILY [facility] Metoprolol Tartrate 5 mg 09/27/20 12:00 09/30/20 12:49 Metoprolol Tartrate I
[2020-09-30] MEDS: MAGNESIUM SULF 1 GM/D5W 100 ML 1 GM/100 ML BAG IVPB (14:48)
[2020-09-30] MEDS: HYDROCORTISONE 1% 30 GM CREAM 1 APPLIC TOPICAL ×2 (14:50→20:06)
[2020-09-30] MEDS: hydrALAZINE HCL 20 MG/ML VIAL 10 MG IV PUSH (16:16)
[2020-09-30 17:37] LABS: Glucose Point of Care 159 (65-105)
[2020-09-30] MEDS: KCL 20MEQ/0.9% SOD CHL 1,000 ML 50 ML IV CONT (18:01)
[2020-09-30 23:41] LABS: Glucose Point of Care 179 (65-105)
[2020-10-01] VITALS (12 sets, daily range): BP systolic 140–189; BP diastolic 75–94; PULSE 108–155; RESP 22–34; TEMP 36.1–36.6; O2SAT 90–97; BMI 29.0
[2020-10-01] MEDS: hydrALAZINE HCL 20 MG/ML VIAL 10 MG IV PUSH (03:38)
--- NOTE | 2020-10-01 04:04 | PC.NURSE ---
while getting x ray pt started vomiting and possibly aspirating emesis. Placed NG tube and pt started having agonal respirations. Suctioned large amount of phlegm and NG putting out large amount of gastric contents. Pt is DNR , O2 on per non rebreather, and pt seems less resp. distress as stomach decompresses. Spoke with family and agree with comfort measures. Will continue NG , o2 on per N/C at 5L spo2 up to 98%. 0408 Pt is alert and responding to questions. Color pale, Resp. 22 .
--- NOTE | 2020-10-01 04:07 | PM.EVENT ---
Event Note Event Note Event Note: Rapid Response Note Called to see this 65 year old obese female who is being treated for SBO who tonight became hypoxic and had increased work of breathing. On my arrival to bedside Nursing staff told me the patient was full code status. She appeared to be vomiting dark green emesis. Auscultation revealed coarse breath sounds b/l. STAT CXR and ABG were ordered and the patient was to be placed on supplemental oxygen. A few moments later Nursing staff called a rapid response as the patient appeared to now have agonal breathing. We double checked the patient's code status and found that she was actually a DNR/DNI code status. I called her family and spoke with her brother on the phone who confirmed her DNR/DNI code status. I explained to him in detail that the patient likely aspirated and has a guarded prognosis. The family has asked that we do what we can to keep the patient comfortable and give her maximal treatment other than intubation, mechanical ventilation, or CPR. The patient was placed on supplemental oxygen and NG tube was inserted. She has already put out 2 canisters of dark green gastric contents. She is currently saturating >95%.
[2020-10-01 04:47] LABS: Hematocrit 41.2 % (37.0-47.0); Hemoglobin 14.2 g/dL (12.0-15.0); Mean Corpuscular HGB Conc 34.5 g/dl (32-36); Mean Corpuscular Hemoglobin 29.5 pg (26-34); Mean Corpuscular Volume 85.5 fl (80-100); Mean Platelet Volume 9.1 fl (7.4-10.4); Platelet Count Result 211 k/mm3 (150-375); Red Blood Count 4.82 M/mm3 (4.2-5.4); Red Cell Distribution Width 14.3 % (11.5-14.5); White Blood Count 25.5 K/mm3 (4.5-10.0)
[2020-10-01 05:06] LABS: Anion Gap 13 mmol/L (8-16); Blood Urea Nitrogen 18 mg/dL (7-17); Calcium 8.6 mg/dL (8.4-10.2); Carbon Dioxide 20 mmol/L (22-30); Chloride 104 mmol/L (98-107); Estimated CRCL calculation 48 ml/min; Estimated Glomerular Filt Rate > 60; Glucose 229 mg/dL (65-105); Magnesium 1.6 mg/dL (1.6-2.3); Potassium 3.4 mmol/L (3.4-5.0); Sodium 137 mmol/L (137-145)
[2020-10-01] MEDS: METOPROLOL TARTRATE INJ 5 MG/5 ML VIAL IV PUSH ×4 (06:10→23:01)
[2020-10-01 06:41] LABS: Glucose Point of Care 177 (65-105)
[2020-10-01] MEDS: ENOXAPARIN 40 MG/0.4 ML SYRINGE SUB-Q (07:41)
[2020-10-01] MEDS: PANTOPRAZOLE SODIUM IV 40 MG VIAL IV PUSH (07:41)
[2020-10-01] MEDS: HYDROCORTISONE 1% 30 GM CREAM 1 APPLIC TOPICAL ×2 (07:42→21:10)
[2020-10-01 08:08] LABS: Glucose Point of Care 191 (65-105)
--- NOTE | 2020-10-01 09:10 | PM.PNGS ---
Progress Note: A&P Assessment and Plan (1) SBO (small bowel obstruction): Code(s): K56.609 - Unspecified intestinal obstruction, unspecified as to partial versus complete obstruction Status: Acute Assessment and Plan: SBFT showed small bowel obstruction with no contrast in the colon at 4 hours. Abdominal films from this morning still show no contrast in the colon. Patient had vomiting and possible aspiration overnight. She now has significant leukocytosis this morning with worsening respiratory status. Overall, the patient is a very high risk surgical candidate and has had extensive abdominal surgery in the past, which complicates her case as well. Ultimately, she has a high-grade obstruction and needs surgical exploration. I discussed the patient's case with Dr. Clemens this morning. He is going to call the family and discuss surgery versus comfort measures for the patient. Apparently, they had been called last night after a rapid response and were requesting to make the patient comfortable. Further plan depending on family's wishes. (2) Leukocytosis: Code(s): D72.829 - Elevated white blood cell count, unspecified Status: Acute Assessment and Plan: WBC 25,000 today. Patient tachycardic, tachypneic, and has had an increase in oxygen requirements. Suspect aspiration - management per primary team. Abdominal films this morning show no free air. Subjective Subjective Date/Time Seen: 10/01/20 09:10 Patient reports: no new complaints Interval history: Patient confused this morning but able to answer simple questions. She denies abdominal pain or nausea overnight. She does remember vomiting overnight. No other complaints this morning. She is on 5L O2 and with no acute respiratory distress. Overnight events noted - multiple episodes of vomiting, desaturation, now on O2/tachycardic/tachypneic. Hospitalist mentioned speaking with family regarding making patient comfortable versus invasive measures of resuscitation and patient was made DNR/DNI. NG tube was placed and 2,700 cc were recorded as output. Since NG placement, she has since pulled the NG. Review of Systems Review of Systems: ROS unobtainable: Yes unobtainable due to mental status Gastrointestinal: Gastrointestinal: Reports as per HPI and Reports no additional gastrointestinal complaints Exam Const: General: comfortable and no acute distress Orientation/consciousness: oriented to person and No oriented to time GI: Inspection: obesity and other (mildly distended) GI Palp: Yes Soft to palpation, No Tenderness to palpation present (GI), No Guarding due to palpation present (GI) and No Rebound tenderness present Auscultation: absent bowel sounds Skin: General skin exam: normal color Neuro: General: oriented to person, No oriented to place, No oriented to time, moves all extremities and no focal motor deficits Extrem: General: normal to inspection, no clubbing, cyanosis or edema and no calf tenderness Psych: Affect: normal affect Attitude: cooperative Insight: Limited insight present (Psych) Judgement: Limited judgement present (Psych) Objective Data Vital Signs Vital Signs: Vital Signs - 24 hr 09/30/20 12:49 09/30/20 13:02 09/30/20 13:54 Temperature Pulse Rate 70 80 Respiratory Rate Blood Pressure 200/100 H 200/110 H Pulse Oximetry 09/30/20 14:20 09/30/20 14:24 09/30/20 16:15 Temperature 98.4 F Pulse Rate 117 H Respiratory Rate 18 Blood Pressure 210/100 H 180/90 H 210/98 H Pulse Oximetry 91 09/30/20 17:02 09/30/20 18:11 09/30/20 20:00 Temperature Pulse Rate 82 82 Respiratory Rate 18 Blood Pressure 160/92 H Pulse Oximetry 91 09/30/20 22:00 09/30/20 23:34 10/01/20 03:29 Temperature 98.8 F 97.5 F L Pulse Rate 108 H 110 H 117 H Respiratory Rate 16 32 H Blood Pressure 158/97 H 189/93 H Pulse Oximetry 92 90 10/01/20 04:02 10/01/20 04:04 10/01/20 05:14 Temperature 96.9 F L Pulse Rat
[2020-10-01 11:41] LABS: Glucose Point of Care 156 (65-105)
--- NOTE | 2020-10-01 14:18 | PCNSR ---
On 10/01/20, the student, Stacie Desir, provided care and completed [facility] documentation on this patient. I have reviewed the student's documentation and agree with the findings.
--- NOTE | 2020-10-01 14:53 | PC.NURSE ---
On 10/01/20, the student, [LANCE FRANKLIN ], provided care and completed [facility] documentation on this patient. I have reviewed the student's documentation and agree with the findings.
--- NOTE | 2020-10-01 16:39 | PM.IMPN ---
Progress Note: A&P Assessment and Plan (1) Acute respiratory failure: Code(s): J96.00 - Acute respiratory failure, unspecified whether with hypoxia or hypercapnia Status: Acute Assessment and Plan: Last night the patient was found to be hypoxic and increased shortness of breath. The night doctor evaluated her and ordered chest x-ray and ABG. There was concerns for possible aspiration pneumonia due to the patient continuing to follow-up her NG tube while treating her small-bowel obstruction, and then develops vomiting. She was started on IV antibiotics Blood cultures were taken Patient is on 5 L of oxygen via nasal cannula with a pulse ox of 92%. Continue monitoring patient's respiratory status. talked with the surgery team about the patient's possible aspiration pneumonia on top of her small-bowel obstruction. The only option at this point would be to proceed with surgery versus comfort care measures. The patient's family did not want to proceed with surgery due to her history of dementia and other chronic illnesses. I talked to the patient's brother, Vinay, who is her power of upper caser and informed him about the patient's status. Since surgery is not an option, and we do not want to place another NG tube causing more discomfort, I asked him if he wanted to get more information about hospice care at this time. He does want more information and is going to me with [facility] at 5:00 p.m.. Will continue monitoring the patient's vitals, respiratory status and antibiotics at this time. (2) Sepsis: Code(s): A41.9 - Sepsis, unspecified organism Status: Acute Assessment and Plan: Patient technically met sepsis criteria with leukocytosis and tachypnea on arrival. Lactic acid WNL. In the setting of a UTI. Now patient meets sepsis criteria for possible aspiration pneumonia and additional IV antibiotics were added for broader spectrum of coverage. She is not hypoxic, tachypneic, tachycardic with a leukocytosis of 25,000 Continue IV antibiotics, IV fluids since she is NPO and waiting for family to decide if they would like hospice care (3) Urinary tract infection: Code(s): N39.0 - Urinary tract infection, site not specified Status: Acute Assessment and Plan: UA suspicious for UTI; UCx growing E. coli sensitive to Rocephin and BCx NGTD x 2 after 5 days. Patient placed on IV Rocephin from the ED Continue IV Rocephin for now (day 6); likely continue to complete 7 days total Continue IV fluids for hydration while NPO Monitor labs (4) SBO (small bowel obstruction): Code(s): K56.609 - Unspecified intestinal obstruction, unspecified as to partial versus complete obstruction Status: Acute Assessment and Plan: Patient has had multiple episodes of vomiting since arrival. KUB obtained 09/27 which showed gaseous distension of stomach, suggesting ileus. Dr. Clemens (General Surgery) subsequently consulted for further input; appreciate recommendations. CT abd/pelvis 09/28 showed evidence of SBO with transition point in mid pelvis. Xr 09/29 shows persistent SBO. Patient pulled out her NG tube last night and we believe she has aspirated Surgery at this time talked to the family and they do not want to proceed with surgery and would like to consider comfort measures There talking with hospice tonight. Continue IV fluids and IV antibiotics while NPO. (5) Metabolic encephalopathy: Code(s): G93.41 - Metabolic encephalopathy Status: Resolved Assessment and Plan: The patient presented to the emergency department with altered mental status, felt to be metabolic encephalopathy from underlying infection and dehydration. This appears to have resolved. She has baseline dementia. Unsure if she is ba
[2020-10-01 17:19] LABS: Glucose Point of Care 119 (65-105)
[2020-10-01] MEDS: KCL 20MEQ/0.9% SOD CHL 1,000 ML 50 ML IV CONT (17:37)
--- NOTE | 2020-10-01 18:00 | PC.NURSE ---
On 10/01/20, the student, [ Dorene Foley], provided care and completed [email or web address] documentation on this patient. I have reviewed the student's documentation and agree with the findings.
[2020-10-01 22:42] LABS: Glucose Point of Care 121 (65-105)
[2020-10-02 04:56] VITALS: BP 152/91; PULSE 110; RESP 20; TEMP 36.4; O2SAT 96
[2020-10-02 05:00] VITALS: PULSE 100
[2020-10-02] MEDS: METOPROLOL TARTRATE INJ 5 MG/5 ML VIAL IV PUSH ×2 (05:00→12:07)
[2020-10-02 05:09] LABS: Glucose Point of Care 108 (65-105)
[2020-10-02] MEDS: ENOXAPARIN 40 MG/0.4 ML SYRINGE SUB-Q (07:52)
[2020-10-02] MEDS: PANTOPRAZOLE SODIUM IV 40 MG VIAL IV PUSH (07:54)
[2020-10-02] MEDS: HYDROCORTISONE 1% 30 GM CREAM 1 APPLIC TOPICAL (07:54)
[2020-10-02 11:18] VITALS: O2SAT 97
[2020-10-02 12:02] LABS: Glucose Point of Care 100 (65-105)
[2020-10-02 12:07] VITALS: PULSE 113
--- NOTE | 2020-10-02 12:51 | PM.DS ---
DS: Admitting Diagnosis Admitting Diagnosis Admitting Diagnosis: AMS DS: Discharge Diagnosis Discharge Diagnosis (1) Acute respiratory failure: Code(s): J96.00 - Acute respiratory failure, unspecified whether with hypoxia or hypercapnia Status: Acute Assessment and Plan: (2) Sepsis: Code(s): A41.9 - Sepsis, unspecified organism Status: Acute Assessment and Plan: (3) Urinary tract infection: Code(s): N39.0 - Urinary tract infection, site not specified Status: Acute Assessment and Plan: (4) SBO (small bowel obstruction): Code(s): K56.609 - Unspecified intestinal obstruction, unspecified as to partial versus complete obstruction Status: Acute Assessment and Plan: (5) Metabolic encephalopathy: Code(s): G93.41 - Metabolic encephalopathy Status: Resolved Assessment and Plan: (6) Dehydration: Code(s): E86.0 - Dehydration Status: Resolved Assessment and Plan: (7) Type 2 diabetes mellitus: Code(s): E11.9 - Type 2 diabetes mellitus without complications Status: Inactive Assessment and Plan: (8) Hypokalemia: Code(s): E87.6 - Hypokalemia Status: Acute Assessment and Plan: (9) Hypomagnesemia: Code(s): E83.42 - Hypomagnesemia Status: Acute Assessment and Plan: (10) Essential hypertension: Code(s): I10 - Essential (primary) hypertension Status: Inactive Assessment and Plan: (11) Gastroesophageal reflux disease: Code(s): K21.9 - Gastro-esophageal reflux disease without esophagitis Status: Inactive Assessment and Plan: (12) Major depressive disorder: Code(s): F32.9 - Major depressive disorder, single episode, unspecified Status: Inactive Assessment and Plan: DS: Summary Hospital Course Reason for hospitalization: Patient is a 65-year-old female with type 2 diabetes mellitus, hypertension, GERD, chronic anemia, and history of bilateralP retinoblastoma status post enucleation presented to the emergency room with altered mental status. Initial vitals showed she was afebrile, non tachycardic, increased respiratory rate, elevated blood pressure, and non hypoxic on room air. Initial labs showed leukocytosis, with a left shift, she had hypokalemia, which was replenished, creatinine 1.0, BUN 31, otherwise normal LFTs. CT head showed No acute abnormality. For infection that came back growing E coli. She met sepsis criteria on admission and was started on IV ceftriaxone for UTI. Then on 09/27/2020 the patient had abdominal distension and was found to have ileus versus small-bowel obstruction. An NG tube was placed. Over the last few days the patient has been confused, pulling out her NG tube, and otherwise not having any improvement of her symptoms. On 09/30/2020, the patient pulled out her NG tube and a rapid was called for possible aspiration where she was found to be hypoxic. She is now on 5 L via nasal cannula, still having encephalopathy, and leukocytosis. Antibiotics were switched to broad-spectrum for coverage of aspiration. Surgery who is on board talked to the patient's family who did not want to proceed with surgery at this time and wanted to talk to hospice. Patient's family met with hospice on 10/01/2020 and sign papers for her to be discharged to [facility]. Since she is still NPO with a linsey
[2020-10-02 13:53] VITALS: BP 129/52; PULSE 64; RESP 16; TEMP 36.4; O2SAT 96
[2020-10-02] MEDS: KCL 20MEQ/0.9% SOD CHL 1,000 ML 50 ML IV CONT (14:20)
--- NOTE | 2020-10-02 14:35 | PC.NURSE ---
On 10/02/20, the student, [Ana Hunt ], provided care and completed [facility] documentation on this patient. I have reviewed the student's documentation and agree with the findings.
[2020-10-02 17:11] LABS: Glucose Point of Care 101 (65-105)
[2020-10-02 17:16] LABS: SARS-CoV-2 RNA PCR Negative
== END 2020-10-02 20:05 | disposition hospice, inpatient (51) | DRG 689 ==
LOC: ANHED 14:58 → ANH2MED 16:47
PROVIDERS: Family Medicine; Physician Assistant; Admitting Provider Family Medicine; Emergency Provider Emergency Medicine; PCP Family Medicine Adolescent Medicine; Visit Provider Physician Assistant
DX: N39.0 Urinary tract infection, site not specified (principal); G93.41 Metabolic encephalopathy; J96.01 Acute respiratory failure with hypoxia; K56.609 Unspecified intestinal obstruction, unspecified as to partial versus complete obstruction; Z20.822 Contact with and (suspected) exposure to COVID-19; B96.20 Unspecified Escherichia coli [E. coli] as the cause of diseases classified elsewhere; F03.90 Unspecified dementia, unspecified severity, without behavioral disturbance, psychotic disturbance, mood disturbance, and anxiety; E86.0 Dehydration; S00.81XA Abrasion of other part of head, initial encounter; E11.9 Type 2 diabetes mellitus without complications; E87.6 Hypokalemia; E83.42 Hypomagnesemia; I10 Essential (primary) hypertension; K21.9 Gastro-esophageal reflux disease without esophagitis; F32.9 Major depressive disorder, single episode, unspecified; D64.9 Anemia, unspecified; D72.829 Elevated white blood cell count, unspecified; Z66 Do not resuscitate; Z79.84 Long term (current) use of oral hypoglycemic drugs; Z79.899 Other long term (current) drug therapy; Z85.840 Personal history of malignant neoplasm of eye; Z90.01 Acquired absence of eye
CPT/HCPCS: 36415; 36600; 70450; 70486; 71045; 72125; 74018; 74019; 74176; 74250; 80048; 80053; 81001; 82607; 82805; 82948; 83036; 83605; 83735; 84132; 84443; 85025; 85027; 87040; 87077; 87086; 87088; 87186; 92950; 94640; 96361; 96365; 96366; 96367; 96372; 96375; 96376; 99285; A9270; C9113; C9803; G0378; J0360; J0696; J1650; J1956; J2405; J3475; J3480; J7030; J7070; U0003; U0005